=== PATIENT | female | born 1940 | race Caucasian/White ===

== ENCOUNTER 2018-08-27 19:00 | Inpatient (IN) ==
--- NOTE | 2018-08-27 19:39 | Emergency Department Note ---
Disposition Clinical Impression: Post-op pain, Acute kidney injury, Elevated troponin Disposition: Still a Patient Condition: Fair Referrals: Maddi Pizano CLOCK MAKER [Primary Care Provider] - Forms: ED Satisfaction Letter Time of Disposition: 22:37 General Adult HPI - General Stated complaint: chest pain Time Seen by Provider: 08/27/18 19:12 Source: patient, family Limitations: no limitations Nursing Notes Reviewed: Yes Vital Signs Reviewed: Yes - History of Present Illness HPI Narrative: 77-year-old female presents from home with daughter bedside for evaluation of substernal and subxiphoid pain. Described as an achy dull sensation. Worse with swallowing anything including her oral secretions. Also worse with coughing or deep inspiration. Nonradiating. She has no associated nausea, vomiting, or dyspnea. She called her surgeon, Dr. Morgan, who advised that she present to the emergency department for evaluation. PMH: Hypothyroid, hypertension, hyperlipidemia, chronic kidney disease stage III, peripheral artery disease, GERD Abdominal surgical history: Appendectomy, cholecystectomy, hysterectomy. Everardo fundoplication for large hiatal hernia. ROS: Pos: substernal/subxyphoid pain with swallowing and diaphragmatic movement Neg: fever, chills, nausea, vomiting, chest pain Pain Scale: 5 - Related Data Home Medications Medication Instructions Recorded Confirmed Cyanocobalamin (Vitamin B-12) 1,000 mcg SL DAILY 08/22/15 08/25/18 [Vitamin B-12] Levothyroxine [Synthroid] 100 mcg PO QAM 08/22/15 08/25/18 Metoprolol XL (24 HR) Succ [Toprol 25 mg PO QAM 08/22/15 08/25/18 Xl] Pantoprazole Sodium [Protonix] 40 mg PO QAM 08/22/15 08/25/18 Potassium 198 mg PO QAM 08/22/15 08/25/18 Pravastatin Sodium [Pravachol] 80 mg PO QPM 08/22/15 08/25/18 Zolpidem [Ambien] 5 mg PO HS PRN 08/22/15 08/25/18 Estradiol [Estrace] 1 appl VG 2XW 11/16/17 08/25/18 Ranitidine HCl [Zantac] 300 mg PO HS PRN 11/16/17 08/25/18 Hydrocortisone 2.5% CREAM [Cortaid] 1 appl TP TID PRN 08/25/18 08/25/18 Lisinopril-HCTZ 20-12.5 [Prinzide 1 tab PO QAM 08/25/18 08/25/18 20-12.5] Ubidecarenone/Vit E Acetate [Co 100 mg PO QPM 08/25/18 08/25/18 Q-10 100 mg Softgel] Vitamins A and D [Vitamin A and D] 1 cap PO DAILY 08/25/18 08/25/18 Previous Rx's Medication Instructions Recorded Acetaminophen [Tylenol] 1,000 mg PO Q4H PRN #90 tablet 08/26/18 Docusate Sodium [Colace] 100 mg PO BID PRN #60 capsule 08/26/18 Ondansetron ODT [Zofran ODT] 4 mg SL Q4HR PRN #30 tab.rapdis 08/26/18 OxyCODONE Immed Rel [Roxicodone 5 5 mg PO Q4HR PRN 7 Days #28 tablet 08/26/18 MG] Polyethylene Glycol 3350 [MiraLAX 1 scoop PO DAILY 30 Days #510 gm 08/26/18 Powder Bulk 17.9 Oz] Allergies Allergy/AdvReac Type Severity Reaction Status Date / Time buprenorphine [From Butrans] Allergy Swelling Verified 08/25/18 12:51 of Lip/Tongue/Throat KELLY Inhibitors AdvReac Cough Verified 08/25/18 12:51 duloxetine [From Cymbalta] AdvReac Agitated Verified 08/25/18 12:51 gabapentin AdvReac See Verified 08/25/18 12:51 Comments hydrocodone AdvReac Vomiting Verified 08/25/18 12:51 NSAIDS (Non-Steroidal AdvReac See Verified 08/25/18 12:51 Anti-Inflamma Comments Tizanidine AdvReac Dizziness Verified 08/25/18 12:51 All systems ED: reviewed and negative except as stated. Review of Systems: As Per HPI Past Medical History - Past Medical History Medical history: Reports: coronary artery disease, GERD, hyperlipidemia, hypertension, renal disease, thyroid disease Surgical history: Reports: appendectomy, cholecystectomy, colectomy, hysterectomy, knee replacement Psychiatric history: Reports: no psych history MEAT STOCKER history: Reports: no MEAT STOCKER history - Social History Smoking Status: Never smoker Smokeless Tobacco Status: No Alcohol use: Reports: none Drug use: Reports: none Physical Exam Vital Signs Reviewed General: Patient is alert, oriented, and in no acute distress. Head: atraumatic, normocephalic Eye: normal appearance, PERRL, EOMI, no scleral icterus, no conjunctival injection ENT: mucous membranes moist, normal external ear exam Neck: normal inspection, trachea midline, full ROM Chest: normal inspection, symmetric chest rise Respiratory: Good respiratory effort. Bilateral breath sounds are clear without wheezing, crackles, or rhonchi. Cardiovascular: Regular rate and rhythm. No clicks, rubs, gallops, or murmors. Normal heart sounds. Abdomen: Bowel sounds present normoactive. Abdomen is soft, nondistended. Mild epigastric tenderness to gentle palpation. No guarding or rebound. No organomegaly noted. Postoperative stab wounds are clean, dry, closed with adhesive glue intact. Musculoskeletal: Spontaneously moving all extremities. Skin: warm, dry, intact. Neuro: GCS 15. No focal neurologic deficits observed. Psych: Patient's affect is appropriate for situation. - General Limitations: no limitations General appearance: alert, in no apparent distress Course Course Narrative: EKG dated 08/27/2018 and 19:12 interpreted as sinus rhythm with rate of 64. VA 206; first-degree AV block. QRS 84, QTC 49. Will axis. Nonspecific ST-T changes. T-wave inversion isolated to be one. Compared to previous EKG dated 11/05/2017 showing no acute ischemic changes; T-wave inversion is not new. Discussed the patient with Dr. Gallagher. She agrees to see the patient on consultation. Surgical consult placed. Given the patient's acute kidney injury and elevation troponin she requests admission to medical service with her on consultation. Her current plan is for esophagram in the morning. The patient is pending admission by the hospitalist. Patient has been signed- out to Dr. Betts with final discussion and admission to the hospitalist pending. Vital Signs Temperature 98 F 08/27/18 19:24 Pulse Rate 64 08/27/18 19:24 Respiratory Rate 16 08/27/18 19:24 Blood Pressure 169/63 08/27/18 19:24 O2 Sat by Pulse Oximetry 95 08/27/18 19:24 Temperature 98 F 08/27/18 19:24 Pulse Rate 64 08/27/18 19:24 Respiratory Rate 16 08/27/18 19:24 Blood Pressure 169/63 08/27/18 19:24 O2 Sat by Pulse Oximetry 95 08/27/18 19:24 Oxygen Delivery Oxygen Delivery Room Air Medical Decision Making - Lab Data Result diagrams: 08/27/18 19:35 08/27/18 19:35 Lab Results 08/27/18 08/27/18 Range/Units 19:35 19:35 WBC 12.7 H (4.3-11.1) K/mcL RBC 3.74 L (3.82-4.97) M/mcL Hgb 11.7 (11.5-15.4) g/dL Hct 37.2 (35.3-44.9) % MCV 99.5 (83.0-100.0) fL MCH 31.3 (28.0-33.3) pg MCHC 31.5 L (31.6-35.5) g/dL RDW 13.1 (11.5-14.5) % Plt Count 220 (140-400) K/mcL MPV 9.6 (9.4-12.4) fL Immature Gran % 0.3 (0-4) % Seg Neutrophils % 80.5 % Lymphocytes % 9.1 % Monocytes % 9.5 % Eosinophils % 0.4 % Basophils % 0.2 % Neutrophils # 10.2 H (1.6-8.9) K/mcL Lymphocytes # 1.2 (0.6-4.6) K/mcL Monocytes # 1.2 (0.0-1.3) K/mcL Eosinophils # 0.1 (0.0-0.6) K/mcL Basophils # 0.0 (0.0-0.2) K/mcL Sodium 139 (136-145) mEq/L Potassium 4.1 (3.5-5.1) mEq/L Chloride 106 (98-107) mEq/L Carbon Dioxide 26 (23-29) mEq/L BUN 29 H (8-23) mg/dL Creatinine 1.32 H (0.60-1.20) mg/dL Est GFR ( Amer) 47 L (> 60) Est GFR (Non-Af Amer) 39 L (> 60) BUN/Creatinine Ratio 22 (6-26) Glucose 130 H (70-105) mg/dL Calculated Osmolality 296 (280-300) Calcium 9.3 (8.6-10.3) mg/dL Troponin I 0.04 H* (< 0.04) ng/mL
[2018-08-27 20:02] LABS: Basophils % 0.2 %; Eosinophils # 0.1 K/mcL (0.0-0.6); Eosinophils % 0.4 %; Hematocrit 37.2 % (35.3-44.9); Hemoglobin 11.7 g/dL (11.5-15.4); Immature Granulocytes % 0.3 % (0-4); Lymphocytes # 1.2 K/mcL (0.6-4.6); Lymphocytes % 9.1 %; Mean Corpuscular HGB Conc 31.5 g/dL (31.6-35.5); Mean Corpuscular Hemoglobin 31.3 pg (28.0-33.3); Mean Corpuscular Volume 99.5 fL (83.0-100.0); Mean Platelet Volume 9.6 fL (9.4-12.4); Monocytes # 1.2 K/mcL (0.0-1.3); Monocytes % 9.5 %; Neutrophils # 10.2 K/mcL (1.6-8.9); Platelet Count 220 K/mcL (140-400); Red Blood Count 3.74 M/mcL (3.82-4.97); Red Cell Distribution Width 13.1 % (11.5-14.5); Segmented Neutrophils % 80.5 %; White Blood Count 12.7 K/mcL (4.3-11.1)
--- NOTE | 2018-08-27 20:03 | Emergency Department Note ---
Disposition Clinical Impression: Post-op pain, Acute kidney injury, Elevated troponin Disposition: Admitted As Inpatient Condition: Fair Referrals: Maddi Pizano, AVIATION SAFETY TECHNICIAN [Primary Care Provider] - Forms: ED Satisfaction Letter Time of Disposition: 22:47 General Adult HPI - General Chief complaint: ED Chest Pain Stated complaint: chest pain Time Seen by Provider: 08/27/18 19:12 Source: patient, family Limitations: no limitations - History of Present Illness Pain Scale: 5 - Related Data Home Medications Medication Instructions Recorded Confirmed Cyanocobalamin (Vitamin B-12) 1,000 mcg SL DAILY 08/22/15 08/25/18 [Vitamin B-12] Levothyroxine [Synthroid] 100 mcg PO QAM 08/22/15 08/25/18 Metoprolol XL (24 HR) Succ [Toprol 25 mg PO QAM 08/22/15 08/25/18 Xl] Pantoprazole Sodium [Protonix] 40 mg PO QAM 08/22/15 08/25/18 Potassium 198 mg PO QAM 08/22/15 08/25/18 Pravastatin Sodium [Pravachol] 80 mg PO QPM 08/22/15 08/25/18 Zolpidem [Ambien] 5 mg PO HS PRN 08/22/15 08/25/18 Estradiol [Estrace] 1 appl VG 2XW 11/16/17 08/25/18 Ranitidine HCl [Zantac] 300 mg PO HS PRN 11/16/17 08/25/18 Hydrocortisone 2.5% CREAM [Cortaid] 1 appl TP TID PRN 08/25/18 08/25/18 Lisinopril-HCTZ 20-12.5 [Prinzide 1 tab PO QAM 08/25/18 08/25/18 20-12.5] Ubidecarenone/Vit E Acetate [Co 100 mg PO QPM 08/25/18 08/25/18 Q-10 100 mg Softgel] Vitamins A and D [Vitamin A and D] 1 cap PO DAILY 08/25/18 08/25/18 Previous Rx's Medication Instructions Recorded Acetaminophen [Tylenol] 1,000 mg PO Q4H PRN #90 tablet 08/26/18 Docusate Sodium [Colace] 100 mg PO BID PRN #60 capsule 08/26/18 Ondansetron ODT [Zofran ODT] 4 mg SL Q4HR PRN #30 tab.rapdis 08/26/18 OxyCODONE Immed Rel [Roxicodone 5 5 mg PO Q4HR PRN 7 Days #28 tablet 08/26/18 MG] Polyethylene Glycol 3350 [MiraLAX 1 scoop PO DAILY 30 Days #510 gm 08/26/18 Powder Bulk 17.9 Oz] Allergies Allergy/AdvReac Type Severity Reaction Status Date / Time buprenorphine [From Butrans] Allergy Swelling Verified 08/25/18 12:51 of Lip/Tongue/Throat KELLY Inhibitors AdvReac Cough Verified 08/25/18 12:51 duloxetine [From Cymbalta] AdvReac Agitated Verified 08/25/18 12:51 gabapentin AdvReac See Verified 08/25/18 12:51 Comments hydrocodone AdvReac Vomiting Verified 08/25/18 12:51 NSAIDS (Non-Steroidal AdvReac See Verified 08/25/18 12:51 Anti-Inflamma Comments Tizanidine AdvReac Dizziness Verified 08/25/18 12:51 Past Medical History - Past Medical History Medical history: Reports: coronary artery disease, GERD, hyperlipidemia, hypertension, renal disease, thyroid disease Surgical history: Reports: appendectomy, cholecystectomy, colectomy, hysterectomy, knee replacement Psychiatric history: Reports: no psych history SOLDERER TORCH history: Reports: no SOLDERER TORCH history - Social History Smoking Status: Never smoker Smokeless Tobacco Status: No Alcohol use: Reports: none Drug use: Reports: none Physical Exam - General Limitations: no limitations General appearance: alert, in no apparent distress Course Vital Signs Temperature 98 F 08/27/18 19:24 Pulse Rate 64 08/27/18 19:24 Respiratory Rate 16 08/27/18 19:24 Blood Pressure 169/63 08/27/18 19:24 O2 Sat by Pulse Oximetry 95 08/27/18 19:24 Temperature 98 F 08/27/18 19:24 Pulse Rate 64 08/27/18 19:24 Respiratory Rate 16 08/27/18 19:24 Blood Pressure 169/63 08/27/18 19:24 O2 Sat by Pulse Oximetry 95 08/27/18 19:24 Oxygen Delivery Oxygen Delivery Room Air Medical Decision Making - Lab Data Result diagrams: 08/27/18 19:35 08/27/18 19:35 Lab Results 08/27/18 08/27/18 Range/Units 19:35 19:35 WBC 12.7 H (4.3-11.1) K/mcL RBC 3.74 L (3.82-4.97) M/mcL Hgb 11.7 (11.5-15.4) g/dL Hct 37.2 (35.3-44.9) % MCV 99.5 (83.0-100.0) fL MCH 31.3 (28.0-33.3) pg MCHC 31.5 L (31.6-35.5) g/dL RDW 13.1 (11.5-14.5) % Plt Count 220 (140-400) K/mcL MPV 9.6 (9.4-12.4) fL Immature Gran % 0.3 (0-4) % Seg Neutrophils % 80.5 % Lymphocytes % 9.1 % Monocytes % 9.5 % Eosinophils % 0.4 % Basophils % 0.2 % Neutrophils # 10.2 H (1.6-8.9) K/mcL Lymphocytes # 1.2 (0.6-4.6) K/mcL Monocytes # 1.2 (0.0-1.3) K/mcL Eosinophils # 0.1 (0.0-0.6) K/mcL Basophils # 0.0 (0.0-0.2) K/mcL Sodium 139 (136-145) mEq/L Potassium 4.1 (3.5-5.1) mEq/L Chloride 106 (98-107) mEq/L Carbon Dioxide 26 (23-29) mEq/L BUN 29 H (8-23) mg/dL Creatinine 1.32 H (0.60-1.20) mg/dL Est GFR ( Amer) 47 L (> 60) Est GFR (Non-Af Amer) 39 L (> 60) BUN/Creatinine Ratio 22 (6-26) Glucose 130 H (70-105) mg/dL Calculated Osmolality 296 (280-300) Calcium 9.3 (8.6-10.3) mg/dL Troponin I 0.04 H* (< 0.04) ng/mL Attestation Statement - Attestation Attestation: I examined this patient and my medical decision-making was reviewed with the Resident Physician. I agree with the documented findings, disposition and treatment plan as described except to the extent set forth below. Patient resisted ED with chief complaint of chest pain and trouble swallowing. Patient is 2 days status post robotic surgery on her esophagus. Starting around noon today while she was sitting on the porch she experience pain in the center of her chest and radiated down into her abdomen. Called her surgeon who recommended her to come to the ED. States she cannot swallow water today. On exam she is in no distress. No reproduce with tenderness. Her incisions are intact without erythema or drainage. Plan. Cardiac workup. We will discuss with surgery. EKG was reviewed with the resident with no acute ischemic changes. Patient has a slight elevation in her troponin. She is given an aspirin. The case is then discussed with surgery who will see her in consult. She will be admitted to medicine. Chest X-Ray 08/27/18 19:29 IMPRESSION: Small bilateral pleural effusions and bibasilar atelectasis or pneumonitis. Soft tissue emphysema and bilateral supraclavicular regions. Correlate with the history of recent surgery. D/ / Jared Tavera MD / Jared Tavera MD Interpreting Provider: Jared Tavera MD
[2018-08-27 20:20] LABS: Calcium 9.3 mg/dL (8.6-10.3); Potassium 4.1 mEq/L (3.5-5.1); Troponin I 0.04 ng/mL (< 0.04)
[2018-08-27] MEDS ORDERED: Aspirin 325 MG TABLET PO ONE (21:16)
[2018-08-27] MEDS ORDERED: 0.9 % Sodium Chloride 1,000 ML IVC SCH ×2 (21:30→22:36)
[2018-08-27] MEDS ORDERED: *HR* OxyCODONE Immed Rel 5 MG TABLET PO STA (22:18)
--- NOTE | 2018-08-28 00:40 | Emergency Department Note ---
Disposition Clinical Impression: Post-op pain, Acute kidney injury, Elevated troponin Disposition: Admitted As Inpatient Condition: Fair Time of Disposition: 00:57 General Adult HPI - General Chief complaint: ED Chest Pain Stated complaint: chest pain Time Seen by Provider: 08/27/18 19:12 Source: patient, family Limitations: no limitations - History of Present Illness Pain Scale: 5 - Related Data Home Medications Medication Instructions Recorded Confirmed Cyanocobalamin (Vitamin B-12) 1,000 mcg SL DAILY 08/22/15 08/27/18 [Vitamin B-12] Levothyroxine [Synthroid] 100 mcg PO QAM 08/22/15 08/27/18 Metoprolol XL (24 HR) Succ [Toprol 25 mg PO QAM 08/22/15 08/27/18 Xl] Pantoprazole Sodium [Protonix] 40 mg PO QAM 08/22/15 08/27/18 Potassium 198 mg PO QAM 08/22/15 08/27/18 Pravastatin Sodium [Pravachol] 80 mg PO QPM 08/22/15 08/27/18 Zolpidem [Ambien] 5 mg PO HS PRN 08/22/15 08/27/18 Estradiol [Estrace] 1 appl VG 2XW 11/16/17 08/27/18 Ranitidine HCl [Zantac] 300 mg PO HS PRN 11/16/17 08/27/18 Hydrocortisone 2.5% CREAM [Cortaid] 1 appl TP TID PRN 08/25/18 08/27/18 Lisinopril-HCTZ 20-12.5 [Prinzide 1 tab PO QAM 08/25/18 08/27/18 20-12.5] Ubidecarenone/Vit E Acetate [Co 100 mg PO QPM 08/25/18 08/27/18 Q-10 100 mg Softgel] Vitamins A and D [Vitamin A and D] 1 cap PO DAILY 08/25/18 08/27/18 Previous Rx's Medication Instructions Recorded Docusate Sodium [Colace] 100 mg PO BID PRN #60 capsule 08/26/18 Ondansetron ODT [Zofran ODT] 4 mg SL Q4HR PRN #30 tab.rapdis 08/26/18 OxyCODONE Immed Rel [Roxicodone 5 5 mg PO Q4HR PRN 7 Days #28 tablet 08/26/18 MG] Polyethylene Glycol 3350 [MiraLAX 1 scoop PO DAILY 30 Days #510 gm 08/26/18 Powder Bulk 17.9 Oz] Allergies Allergy/AdvReac Type Severity Reaction Status Date / Time buprenorphine [From Butrans] Allergy Swelling Verified 08/25/18 12:51 of Lip/Tongue/Throat KELLY Inhibitors AdvReac Cough Verified 08/25/18 12:51 duloxetine [From Cymbalta] AdvReac Agitated Verified 08/25/18 12:51 gabapentin AdvReac See Verified 08/25/18 12:51 Comments hydrocodone AdvReac Vomiting Verified 08/25/18 12:51 NSAIDS (Non-Steroidal AdvReac See Verified 08/25/18 12:51 Anti-Inflamma Comments Tizanidine AdvReac Dizziness Verified 08/25/18 12:51 Past Medical History - Past Medical History Medical history: Reports: coronary artery disease, GERD, hyperlipidemia, hypertension, renal disease, thyroid disease Surgical history: Reports: appendectomy, cholecystectomy, colectomy, hysterectomy, knee replacement Psychiatric history: Reports: no psych history PAYROLL EXAMINER history: Reports: no PAYROLL EXAMINER history - Social History Smoking Status: Never smoker Smokeless Tobacco Status: No Alcohol use: Reports: none Drug use: Reports: none Physical Exam - General Limitations: no limitations General appearance: alert, in no apparent distress Course Vital Signs Temperature 98 F 08/27/18 19:24 Pulse Rate 64 08/27/18 19:24 Respiratory Rate 16 08/27/18 19:24 Blood Pressure 169/63 08/27/18 19:24 O2 Sat by Pulse Oximetry 95 08/27/18 19:24 Temperature 98 F 08/27/18 19:24 Pulse Rate 69 08/27/18 23:48 Respiratory Rate 16 08/27/18 23:48 Blood Pressure 153/65 08/27/18 23:48 O2 Sat by Pulse Oximetry 94 08/27/18 23:48 Oxygen Delivery Oxygen Delivery Room Air Medical Decision Making - Lab Data Result diagrams: 08/27/18 19:35 08/27/18 19:35 Lab Results 08/27/18 08/27/18 Range/Units 19:35 19:35 WBC 12.7 H (4.3-11.1) K/mcL RBC 3.74 L (3.82-4.97) M/mcL Hgb 11.7 (11.5-15.4) g/dL Hct 37.2 (35.3-44.9) % MCV 99.5 (83.0-100.0) fL MCH 31.3 (28.0-33.3) pg MCHC 31.5 L (31.6-35.5) g/dL RDW 13.1 (11.5-14.5) % Plt Count 220 (140-400) K/mcL MPV 9.6 (9.4-12.4) fL Immature Gran % 0.3 (0-4) % Seg Neutrophils % 80.5 % Lymphocytes % 9.1 % Monocytes % 9.5 % Eosinophils % 0.4 % Basophils % 0.2 % Neutrophils # 10.2 H (1.6-8.9) K/mcL Lymphocytes # 1.2 (0.6-4.6) K/mcL Monocytes # 1.2 (0.0-1.3) K/mcL Eosinophils # 0.1 (0.0-0.6) K/mcL Basophils # 0.0 (0.0-0.2) K/mcL Sodium 139 (136-145) mEq/L Potassium 4.1 (3.5-5.1) mEq/L Chloride 106 (98-107) mEq/L Carbon Dioxide 26 (23-29) mEq/L BUN 29 H (8-23) mg/dL Creatinine 1.32 H (0.60-1.20) mg/dL Est GFR ( Amer) 47 L (> 60) Est GFR (Non-Af Amer) 39 L (> 60) BUN/Creatinine Ratio 22 (6-26) Glucose 130 H (70-105) mg/dL Calculated Osmolality 296 (280-300) Calcium 9.3 (8.6-10.3) mg/dL Troponin I 0.04 H* (< 0.04) ng/mL Attestation Statement - Attestation Attestation: Care of patient assumed from Dr. Payne and Dr. Branham at 23:00 pending admission. I spoke with Dr. Gonzales, hospitalist, who recommended a CT chest due to the subcutaneous supraclavicular air identified on chest x-ray. This test was ordered and is pending. Care will be endorsed to Dr. Escalante at 01:00
[2018-08-28] MEDS ORDERED: Naloxone 0.4 MG/ML INJ IVP PRN (03:19)
[2018-08-28] MEDS ORDERED: Ondansetron 4 MG/2 ML VIAL IVP PRN (03:19)
--- NOTE | 2018-08-28 04:50 | Internal Med History&Physical ---
Date of Encounter: 08/28/18 Time of Encounter: 02:30 Internal Medicine - H&P: HPI Chief complaint: painful swallowing; chest pain Admitted From: Emergency Dept Plans for Post Hospital Care: Home History of present illness: Ms. Ackerman is a 77 year old female who presents tonight 2 days postop from robotic-assisted Everardo fundoplication and hernia repair. She has had almost no oral intake since discharge. She has had significant difficulty and painful swallowing, chest pain, and nausea. She therefore came to ER for evaluation and consult was placed to surgery for further workup. She was noted to have an elevated troponin of 0.04. She was therefore admitted to hospitalist service for concerns of chest pain. I requested the patient have a CT of the chest to rule out mediastinitis and/or esophageal perforation. CT suggests postoperative changes and some extraluminal gas which can be secondary to surgery. However, perforated viscus could not be excluded. Dr. Leon was consulted from the ER. Upon my assessment of the patient, she and her daughter confirmed the above history. She is resting in bed comfortably now. She has minimal pain now. I do not appreciate any subcutaneous emphysema. She describes her chest pain as sharp, midsternal, and associated with swallowing. She denies any fevers, chills, or night sweats. Past Med Surg Social Fam HX - Past Medical History Attestation: Yes The following information was validated with the patient. Source: patient, old records reviewed, obtained from family Medical history: coronary artery disease, GERD, hyperlipidemia, hypertension, renal disease, thyroid disease Additional medical history: atypical chest pain, insomnia, hiatal hernia, stomach ulcer, esophageal stricture Psychiatric history: no psych history - Past Surgical History Surgical History: appendectomy, cholecystectomy, colectomy, hysterectomy, knee replacement Additional surgical history: Spine Stimulator H/O. bladder suspension. tonsil lectomy. hiatal hernia repair 08/25/18 - Social History Smoking Status: Never smoker Smokeless Tobacco Status: No Alcohol use: none Drug use: none Current living situation: Home, With Family Activity Level: Independent ambulation Recent Out of Country Travel Within the Last 8 Weeks: No - Family History Father Living Status: Hx Family Respiratory Disorders: Yes (lung disease from WWI biological weapon) Mother Hx Family Cardiac Disorders: Yes (CHF) Internal Medicine - H&P: Meds Cyanocobalamin (Vitamin B-12) [Vitamin B-12] 1,000 mcg SL DAILY 08/22/15 [History] Levothyroxine [Synthroid] 100 mcg PO QAM 08/22/15 [History] Metoprolol XL (24 HR) Succ [Toprol Xl] 25 mg PO QAM 08/22/15 [History] Pantoprazole Sodium [Protonix] 40 mg PO QAM 08/22/15 [History] Potassium 198 mg PO QAM 08/22/15 [History] Pravastatin Sodium [Pravachol] 80 mg PO QPM 08/22/15 [History] Zolpidem [Ambien] 5 mg PO HS PRN 08/22/15 [History] Estradiol [Estrace] 1 appl VG 2XW 11/16/17 [History] Ranitidine HCl [Zantac] 300 mg PO HS PRN 11/16/17 [History] Hydrocortisone 2.5% CREAM [Cortaid] 1 appl TP TID PRN 08/25/18 [History] Lisinopril-HCTZ 20-12.5 [Prinzide 20-12.5] 1 tab PO QAM 08/25/18 [History] Ubidecarenone/Vit E Acetate [Co Q-10 100 mg Softgel] 100 mg PO QPM 08/25/18 [History] Vitamins A and D [Vitamin A and D] 1 cap PO DAILY 08/25/18 [History] Docusate Sodium [Colace] 100 mg PO BID PRN #60 capsule 08/26/18 [Rx] Ondansetron ODT [Zofran ODT] 4 mg SL Q4HR PRN #30 tab.rapdis 08/26/18 [Rx] OxyCODONE Immed Rel [Roxicodone 5 MG] 5 mg PO Q4HR PRN 7 Days #28 tablet 08/26/18 [Rx] Polyethylene Glycol 3350 [MiraLAX Powder Bulk 17.9 Oz] 1 scoop PO DAILY 30 Days #510 gm 08/26/18 [Rx] Allergy/AdvReac Type Severity Reaction Status Date / Time buprenorphine [From Butrans] Allergy Swelling Verified 08/25/18 12:51 of Lip/Tongue/Throat KELLY Inhibitors AdvReac Cough Verified 08/25/18 12:51 duloxetine [From Cymbalta] AdvReac Agitated Verified 08/25/18 12:51 gabapentin AdvReac See Verified 08/25/18 12:51 Comments hydrocodone AdvReac Vomiting Verified 08/25/18 12:51 NSAIDS (Non-Steroidal AdvReac See Verified 08/25/18 12:51 Anti-Inflamma Comments Tizanidine AdvReac Dizziness Verified 08/25/18 12:51 - Constitutional Constitutional: no chills, no fever(s), no night sweats - EENT Eyes: no blurry vision, no change in vision Ears: no ear pain, no tinnitus Nose, mouth and throat: no nasal congestion, no sinus pressure, no sore throat - Cardiovascular Cardiovascular ROS IM: chest pain, no dyspnea, no dyspnea on exertion, no orthopnea, no paroxysmal nocturnal dyspnea - Respiratory Respiratory: no cough, no dyspnea, no hemoptysis, no chest congestion, no excessive phlegm production, no change in phlegm color - Gastrointestinal Gastrointestinal: abdominal pain, odynophagia, no diarrhea, no heartburn, no hematemesis, no hematochezia, no melena, no vomiting - Genitourinary Genitourinary: no dysuria, no flank pain, no hematuria - Musculoskeletal Musculoskeletal ROS IM: no arthralgias, no back pain - Integumentary Integumentary IM: no rash, no jaundice - Neurological Neurological ROS: no disequilibrium, no dizziness, no focal weakness, no frequent falls, no headache(s) - Psychiatric Psychiatric: no anxiety, no depression - Endocrine Endocrine IM: no cold intolerance, no heat intolerance, no polydipsia, no polyphagia, no polyuria - Allergic/Immunologic Allergic/Immunologic: GI upset with certain foods, no wheezing - Constitutional Vitals: Temp Pulse Resp BP Pulse Ox 98.3 F 66 15 182/74 90 08/28/18 02:03 08/28/18 02:03 08/28/18 02:03 08/28/18 02:03 08/28/18 02:03 General appearance: Present: cooperative, mild distress, A&O X 3, pleasant, answers questions appropriately Exam: complaining of mild midsternal sharp pain - Head Head exam: Present: atraumatic, normal inspection - Eye Eye exam: Present: EOMI, PERRL. Absent: scleral icterus Pupils: Present: normal accommodation - ENT ENT exam: Present: mucous membranes dry, normal exam, normal oropharynx - Neck Neck exam general surgery: Present: full ROM, supple, trachea midline. Absent: tenderness, nuchal rigidity, thyromegaly - Respiratory Respiratory exam: Present: CTAB. Absent: chest wall tenderness, rales, rhonchi, wheezes - Cardiovascular Cardiovascular exam: Present: RRR, +S1, +S2. Absent: diastolic murmur, systolic murmur - GI/Abdominal GI/Abdominal exam: Present: normal bowel sounds, tenderness (epigastric area). Absent: guarding, hepatomegaly, mass, rebound, splenomegaly - Extremities Exam Extremities exam: Present: full ROM, normal capillary refill, warm, radial pulses palpable and symmetrical. Absent: calf tenderness, pedal edema, tenderness - Back Exam Back exam: Absent: CVA tenderness (L), CVA tenderness (R) - Neurological Exam Neurological exam: Present: alert, CN II-XII intact, oriented X3, strengths equal and symetr throughout - Psychiatric Psychiatric exam: Present: normal affect, normal mood - Skin Skin exam: Present: dry, intact, warm Internal Med - H&P Results - Labs CBC & Chem 7: 08/27/18 19:35 08/27/18 19:35 Labs: Short CBC 08/27/18 Range/Units 19:35 WBC 12.7 H (4.3-11.1) K/mcL Hgb 11.7 (11.5-15.4) g/dL Hct 37.2 (35.3-44.9) % Plt Count 220 (140-400) K/mcL Neutrophils # 10.2 H (1.6-8.9) K/mcL BMP 08/27/18 19:35 Sodium 139 Potassium 4.1 Chloride 106 Carbon Dioxide 26 BUN 29 H Creatinine 1.32 H Glucose 130 H Calcium 9.3 Cardiac Enzymes 08/27/18 Range/Units 19:35 Troponin I 0.04 H* (< 0.04) ng/mL - EKG Data -: EKG Interpreted by Myself - EKG Data Prior EKG available for review: no EKG comments: 08/28/18 04:[address]-T changes NSR - Impressions ITS Impressions Chest X-Ray 08/27/18 19:29 IMPRESSION: Small bilateral pleural effusions and bibasilar atelectasis or pneumonitis. Soft tissue emphysema and bilateral supraclavicular regions. Correlate with the history of recent surgery. D/ / Jared Tavera MD / Jared Tavera MD Interpreting Provider: Jared Tavera MD Chest CT 08/28/18 23:27 IMPRESSION: Postsurgical changes gastric fundoplication. There is mediastinal gas identified including gas adjacent to the distal esophagus. There is fluid surrounding the distal esophagus and to a lesser extent the stomach which could be postsurgical. Upper abdominal extraluminal gas, and lower chest and upper chest wall gas are also identified. Extraluminal gas could be related to recent surgery. Perforated viscus is not excluded. Small moderate bilateral pleural effusions with bibasilar airspace disease, atelectasis and/or pneumonia. Right upper lobe centrilobular nodules in a branching configuration, likely infectious pneumonitis. D/ / Michell Romero Cha, MD / Michell Romero Cha, MD Interpreting Provider: Michell Romero Cha, MD - Diagnostic Studies Chest x-ray Status: image reviewed by me (small bilateral pleural effusion) - Assessment and Plan (1) Odynophagia Current Visit: Yes Status: Acute Assessment and plan: 1. WIll keep NPO. 2. Consult surgery. 3. Order Esophagram to rule out esophageal perforation. 4. Culture blood and start antibiotics to cover GI юлия. 5. IV PPI. (2) Acute kidney injury Current Visit: Yes Status: Acute Assessment and plan: 1. IV fluids. 2. Monitor renal function, I/O's. 3. May need nephrology consultation if function does not return to baseline. (3) Elevated troponin Current Visit: Yes Status: Acute Assessment and plan: 1. Will trend troponins and monitor on telemetry. 2. Order ECHO. 3. Consult cardiology if significant rise in troponins and/or patient develops anginal type pain. (4) DVT prophylaxis Current Visit: Yes Status: Acute Assessment and plan: 1. Heparin SQ.
[2018-08-28 05:02] LABS: Basophils # 0.1 K/mcL (0.0-0.2); Basophils % 0.4 %; Eosinophils # 0.1 K/mcL (0.0-0.6); Hematocrit 35.6 % (35.3-44.9); Hemoglobin 11.4 g/dL (11.5-15.4); Immature Granulocytes % 0.4 % (0-4); Lymphocytes # 1.2 K/mcL (0.6-4.6); Lymphocytes % 9.3 %; Mean Corpuscular Volume 96.7 fL (83.0-100.0); Mean Platelet Volume 9.5 fL (9.4-12.4); Monocytes # 1.3 K/mcL (0.0-1.3); Monocytes % 10.3 %; Neutrophils # 10.1 K/mcL (1.6-8.9); Platelet Count 192 K/mcL (140-400); Red Blood Count 3.68 M/mcL (3.82-4.97); Segmented Neutrophils % 78.6 %; White Blood Count 12.9 K/mcL (4.3-11.1)
[2018-08-28 05:17] LABS: Alanine Aminotransferase 212 Units/L (7-52); Albumin 3.4 g/dL (3.5-5.7); Albumin/Globulin Ratio 1.4 (1.1-2.2); Alkaline Phosphatase 159 Units/L (34-104); Aspartate Amino Transferase 208 Units/L (13-39); BUN/Creatinine Ratio 25 (6-26); Bilirubin,Total 3.5 mg/dL (0.3-1.0); Blood Urea Nitrogen 26 mg/dL (8-23); Calcium 9.2 mg/dL (8.6-10.3); Carbon Dioxide 24 mEq/L (23-29); Chloride 105 mEq/L (98-107); Globulin 2.4 g/dL (2.4-3.5); Glucose 106 mg/dL (70-105); Osmolality,Calculated 291 (280-300); Potassium 3.7 mEq/L (3.5-5.1); Sodium 138 mEq/L (136-145); Total Protein 5.8 g/dL (6.4-8.9); eGFR For African Americans > 60 (> 60); eGFR For Non-African Americans 51 (> 60)
[2018-08-28 05:18] LABS: INR 1.1; Prothrombin Time 12.8 Seconds (9.4-12.1)
--- NOTE | 2018-08-28 06:36 | AcuteCare Surgery Consult Note ---
Date of Encounter: 08/28/18 Time of Encounter: 06:00 Assessment and Plan (1) Odynophagia Current Visit: Yes Status: Acute POD#3 Robotic paraesophageal HH repair and Everardo fundoplication. Suspect odynophagia is due to post-op edema. Maintain NPO except meds. Baclofen PO. Solumedrol IV. Repeat Esophagram in 1-2 days. (2) Acute kidney injury Current Visit: Yes Status: Acute IVF for hydration. (3) Elevated troponin Current Visit: Yes Status: Acute Trending down (4) CKD (chronic kidney disease), stage III Current Visit: No Status: Acute (5) HTN (hypertension) Current Visit: No Status: Acute Qualifiers: Hypertension type: essential hypertension Qualified Code(s): I10 - Essential (primary) hypertension History of Present Illness Consult date: 08/27/18 Reason for consult: other (odynophagia s/p Robo everardo and HH repair) Requesting physician: Jean Gonzales History of present illness: Pt presents to [facility] on advise from Dr. Markham who performed a robo everardo with HH repair a few days ago. Pt c/o chest pain and cannot swallow without pain. Very little goes down. Denies SOB. Denies abdominal pain. Denies fever. Past Med Surg Social Fam HX - Past Medical History Medical history: coronary artery disease, GERD, hyperlipidemia, hypertension, renal disease, thyroid disease Additional medical history: atypical chest pain, insomnia, hiatal hernia, stomach ulcer, esophageal stricture Psychiatric history: no psych history - Past Surgical History Surgical History: appendectomy, cholecystectomy, colectomy, hysterectomy, knee replacement Additional surgical history: Spine Stimulator H/O. bladder suspension. tons illectomy. hiatal hernia repair 08/25/18 - Social History Smoking Status: Never smoker Smokeless Tobacco Status: No Alcohol use: none Drug use: none - Family History Father Living Status: Hx Family Respiratory Disorders: Yes (lung disease from WWI biological weapon) Mother Hx Family Cardiac Disorders: Yes (CHF) Medications and Allergies Cyanocobalamin (Vitamin B-12) [Vitamin B-12] 1,000 mcg SL DAILY 08/22/15 [History] Levothyroxine [Synthroid] 100 mcg PO QAM 08/22/15 [History] Metoprolol XL (24 HR) Succ [Toprol Xl] 25 mg PO QAM 08/22/15 [History] Pantoprazole Sodium [Protonix] 40 mg PO QAM 08/22/15 [History] Potassium 198 mg PO QAM 08/22/15 [History] Pravastatin Sodium [Pravachol] 80 mg PO QPM 08/22/15 [History] Zolpidem [Ambien] 5 mg PO HS PRN 08/22/15 [History] Estradiol [Estrace] 1 appl VG 2XW 11/16/17 [History] Ranitidine HCl [Zantac] 300 mg PO HS PRN 11/16/17 [History] Hydrocortisone 2.5% CREAM [Cortaid] 1 appl TP TID PRN 08/25/18 [History] Lisinopril-HCTZ 20-12.5 [Prinzide 20-12.5] 1 tab PO QAM 08/25/18 [History] Ubidecarenone/Vit E Acetate [Co Q-10 100 mg Softgel] 100 mg PO QPM 08/25/18 [History] Vitamins A and D [Vitamin A and D] 1 cap PO DAILY 08/25/18 [History] Docusate Sodium [Colace] 100 mg PO BID PRN #60 capsule 08/26/18 [Rx] Ondansetron ODT [Zofran ODT] 4 mg SL Q4HR PRN #30 tab.rapdis 08/26/18 [Rx] OxyCODONE Immed Rel [Roxicodone 5 MG] 5 mg PO Q4HR PRN 7 Days #28 tablet 08/26/18 [Rx] Polyethylene Glycol 3350 [MiraLAX Powder Bulk 17.9 Oz] 1 scoop PO DAILY 30 Days #510 gm 08/26/18 [Rx] Allergy/AdvReac Type Severity Reaction Status Date / Time buprenorphine [From Butrans] Allergy Swelling Verified 08/25/18 12:51 of Lip/Tongue/Throat KELLY Inhibitors AdvReac Cough Verified 08/25/18 12:51 duloxetine [From Cymbalta] AdvReac Agitated Verified 08/25/18 12:51 gabapentin AdvReac See Verified 08/25/18 12:51 Comments hydrocodone AdvReac Vomiting Verified 08/25/18 12:51 NSAIDS (Non-Steroidal AdvReac See Verified 08/25/18 12:51 Anti-Inflamma Comments Tizanidine AdvReac Dizziness Verified 08/25/18 12:51 Review of Systems All systems PM: The remainder of the systems were reviewed and are negative - Constitutional anorexia, fatigue, weakness, no chills, no excessive sweating, no fever(s), no night sweats - EENT Nose, mouth and throat: dry mouth, dysphagia, sore throat, no nasal congestion, no nasal discharge, no sinus pain, no sinus pressure - Cardiovascular chest pain, chest pain at rest, no diaphoresis, no dyspnea, no edema - Respiratory no cough, no dyspnea, no wheezing - Gastrointestinal belching, no abdominal pain, no bloating, no constipation, no diarrhea, no heartburn, no nausea, no vomiting - Genitourinary Genitourinary: no dysuria, no flank pain, no urinary frequency - Musculoskeletal back pain, no joint swelling, no limited range of motion, no neck pain - Integumentary dry skin, no pruritus, no rash, no wounds, no jaundice - Neurological weakness, no confusion, no dizziness, no focal weakness, no headache(s) - Psychiatric no anxiety, no depression - Endocrine fatigue - Hematologic/Lymphatic no easy bleeding, no easy bruising General Surgery Exam Initial Vital Signs Temp Pulse Resp BP Pulse Ox 98 F 64 16 169/63 95 08/27/18 19:24 08/27/18 19:24 08/27/18 19:24 08/27/18 19:24 08/27/18 19:24 Exam Initial Vital Signs Temp Pulse Resp BP Pulse Ox 98 F 64 16 169/63 95 08/27/18 19:24 08/27/18 19:24 08/27/18 19:24 08/27/18 19:24 08/27/18 19:24 Results - Labs 08/28/18 04:47 08/28/18 04:47 Abnormal lab results WBC 12.9 K/mcL (4.3-11.1) H 08/28/18 04:47 RBC 3.68 M/mcL (3.82-4.97) L 08/28/18 04:47 Hgb 11.4 g/dL (11.5-15.4) L 08/28/18 04:47 MCHC 31.5 g/dL (31.6-35.5) L 08/27/18 19:35 Neutrophils # 10.1 K/mcL (1.6-8.9) H 08/28/18 04:47 PT 12.8 Seconds (9.4-12.1) H 08/28/18 04:47 BUN 26 mg/dL (8-23) H 08/28/18 04:47 Creatinine 1.32 mg/dL (0.60-1.20) H 08/27/18 19:35 Est GFR ( Amer) 47 (> 60) L 08/27/18 19:35 Est GFR (Non-Af Amer) 51 (> 60) L 08/28/18 04:47 Glucose 106 mg/dL (70-105) H 08/28/18 04:47 Total Bilirubin 3.5 mg/dL (0.3-1.0) H 08/28/18 04:47 AST 208 Units/L (13-39) H 08/28/18 04:47 ALT 212 Units/L (7-52) H 08/28/18 04:47 Alkaline Phosphatase 159 Units/L (34-104) H 08/28/18 04:47 Troponin I 0.32 ng/mL (< 0.04) H* 08/28/18 04:47 Serum Total Protein 5.8 g/dL (6.4-8.9) L 08/28/18 04:47 Albumin 3.4 g/dL (3.5-5.7) L 08/28/18 04:47 Diabetes panel 08/27/18 08/28/18 Range/Units 19:35 04:47 Sodium 139 138 (136-145) mEq/L Potassium 4.1 3.7 (3.5-5.1) mEq/L Chloride 106 105 (98-107) mEq/L Carbon Dioxide 26 24 (23-29) mEq/L BUN 29 H 26 H (8-23) mg/dL Creatinine 1.32 H 1.04 (0.60-1.20) mg/dL Glucose 130 H 106 H (70-105) mg/dL Calcium 9.3 9.2 (8.6-10.3) mg/dL AST 208 H (13-39) Units/L ALT 212 H (7-52) Units/L Alkaline Phosphatase 159 H (34-104) Units/L Albumin 3.4 L (3.5-5.7) g/dL Calcium panel 08/27/18 08/28/18 Range/Units 19:35 04:47 Calcium 9.3 9.2 (8.6-10.3) mg/dL Albumin 3.4 L (3.5-5.7) g/dL Pituitary panel 08/27/18 08/28/18 Range/Units 19:35 04:47 Sodium 139 138 (136-145) mEq/L Potassium 4.1 3.7 (3.5-5.1) mEq/L Chloride 106 105 (98-107) mEq/L Carbon Dioxide 26 24 (23-29) mEq/L BUN 29 H 26 H (8-23) mg/dL Creatinine 1.32 H 1.04 (0.60-1.20) mg/dL Glucose 130 H 106 H (70-105) mg/dL Calcium 9.3 9.2 (8.6-10.3) mg/dL Adrenal panel 08/27/18 08/28/18 Range/Units 19:35 04:47 Sodium 139 138 (136-145) mEq/L Potassium 4.1 3.7 (3.5-5.1) mEq/L Chloride 106 105 (98-107) mEq/L Carbon Dioxide 26 24 (23-29) mEq/L BUN 29 H 26 H (8-23) mg/dL Creatinine 1.32 H 1.04 (0.60-1.20) mg/dL Glucose 130 H 106 H (70-105) mg/dL Calcium 9.3 9.2 (8.6-10.3) mg/dL Total Bilirubin 3.5 H (0.3-1.0) mg/dL AST 208 H (13-39) Units/L ALT 212 H (7-52) Units/L Alkaline Phosphatase 159 H (34-104) Units/L Albumin 3.4 L (3.5-5.7) g/dL All other labs normal. - Imaging CT scan - chest: image reviewed (post-op changes with pneumomediastinum) Consult Discharge Plan - Plan Referrals: Maddi Pizano, CORPORATE RESPONSIBILITY OFFICER [Primary Care Provider] -
[2018-08-28] MEDS: *HR* Heparin 5,000 UNIT/ML VIAL SQ SCH ×2 (06:47→17:22)
[2018-08-28] MEDS: Pantoprazole 40 MG VIAL IVP SCH ×2 (06:48→17:08)
[2018-08-28] MEDS ORDERED: *HR* Midazolam HCl 5 MG/5 ML VIAL IVP ONE (08:22)
[2018-08-28] MEDS ORDERED: *HR* FentaNYL (PF) 100 MCG/2 ML VIAL IVP ONE (08:22)
[2018-08-28] MEDS: MetroNIDAZOLE 500 MG/100 ML 500 MG/100 ML BAG IVPB SCH ×2 (08:23→17:06)
[2018-08-28] MEDS: 0.9 % Sodium Chloride 1,000 ML IVC SCH ×2 (08:24→17:07)
[2018-08-28] MEDS: Piperacillin/Tazobactam 3.375 GM in 0.9 % Sodium Chloride Mini Bag 100 ML IVPB SCH ×2 (08:24→17:07)
[2018-08-28] MEDS ORDERED: Baclofen 10 MG TABLET PO PRN (08:29)
[2018-08-28] MEDS: *HR* FentaNYL (PF) 100 MCG/2 ML VIAL IVP PRN (08:47)
--- NOTE | 2018-08-28 10:20 | Electrocardiograph Report ---
[place] [address] Test Date: 2018-08-27 Pat Name: Brionna Ackerman Department: [id number] Room: 3A42 Gender: F Research Biologist: : 1940 Requested By: Sen Payne Order Number: [id number] Reading MD: Radha Mike Measurements Intervals [place] Rate: 64 P: 68 OK: 206 QRS: 67 QRSD: 84 T: 42 QT: 396 QTc: 409 Interpretive Statements Sinus rhythm Low voltage, precordial leads Electronically Signed On 08-28-2018 10:18:43 EDT by Radha Mike
[2018-08-28] MEDS: methylPREDNISolone 125 MG/2 ML VIAL IVP SCH ×2 (12:24→17:08)
--- NOTE | 2018-08-28 14:51 | Event Note ---
Date of Encounter: 08/28/18 Time of Encounter: 09:35 Patient complaints of chest pain but appears to be improving after she received pain medication. Discussed with surgery. Recommend to keep patient nothing by mouth. Continue pain medications as ordered. Patient has also been ordered and Solu-Medrol to help reduce inflammation. Continue antibiotics for pneumonitis. Troponins. Get 0.32 and trending down now. Most likely from demand ischemia. Obtaining 2-D echocardiogram. Will follow results. Continue IV hydration.
[2018-08-28] MEDS ORDERED: Piperacillin/Tazobactam 3.375 GM VIAL ONE (16:43)
[2018-08-29] MEDS: Piperacillin/Tazobactam 3.375 GM in 0.9 % Sodium Chloride Mini Bag 100 ML IVPB SCH ×4 (00:51→22:55)
[2018-08-29] MEDS: methylPREDNISolone 125 MG/2 ML VIAL IVP SCH ×5 (00:51→22:56)
[2018-08-29] MEDS: MetroNIDAZOLE 500 MG/100 ML 500 MG/100 ML BAG IVPB SCH ×4 (00:52→22:55)
[2018-08-29] MEDS: 0.9 % Sodium Chloride 1,000 ML IVC SCH ×3 (00:53→22:56)
[2018-08-29 06:48] LABS: Basophils % 0.1 %; Hematocrit 34.7 % (35.3-44.9); Hemoglobin 11.1 g/dL (11.5-15.4); Immature Granulocytes % 0.5 % (0-4); Lymphocytes # 0.6 K/mcL (0.6-4.6); Lymphocytes % 5.4 %; Mean Corpuscular Hemoglobin 30.7 pg (28.0-33.3); Mean Corpuscular Volume 95.9 fL (83.0-100.0); Mean Platelet Volume 10.2 fL (9.4-12.4); Monocytes # 0.3 K/mcL (0.0-1.3); Monocytes % 2.6 %; Platelet Count 220 K/mcL (140-400); Red Blood Count 3.62 M/mcL (3.82-4.97); Red Cell Distribution Width 12.9 % (11.5-14.5); Segmented Neutrophils % 91.4 %
[2018-08-29] MEDS: *HR* Heparin 5,000 UNIT/ML VIAL SQ SCH ×2 (06:49→17:41)
[2018-08-29] MEDS: Pantoprazole 40 MG VIAL IVP SCH ×2 (06:49→17:40)
[2018-08-29] MEDS: *HR* FentaNYL (PF) 100 MCG/2 ML VIAL IVP PRN (06:50)
[2018-08-29] MEDS ORDERED: Bisacodyl 10 MG RECTAL SUPPOSITORY RC PRN (07:07)
[2018-08-29 07:14] LABS: BUN/Creatinine Ratio 28 (6-26); Blood Urea Nitrogen 29 mg/dL (8-23); Carbon Dioxide 22 mEq/L (23-29); Chloride 108 mEq/L (98-107); Glucose 130 mg/dL (70-105); Osmolality,Calculated 298 (280-300); Potassium 3.5 mEq/L (3.5-5.1); Sodium 140 mEq/L (136-145); eGFR For African Americans > 60 (> 60); eGFR For Non-African Americans 51 (> 60)
--- NOTE | 2018-08-29 09:00 | AcuteCareSurgery Progress Note ---
Date of Encounter: 08/29/18 Time of Encounter: 07:00 - Assessment and Plan (1) Odynophagia Current Visit: Yes Status: Acute S/P robo Everardo with HH repair. Improved since admission. Maintain NPO and IV solumedrol. Will repeat esophagram in am. If esophagram is improved and edema is resolving will start clear liquid diet. If Esohagram is unchanged, then will initiate PICC and TPN. (2) Acute kidney injury Current Visit: Yes Status: Acute resolved with IVF (3) Elevated troponin Current Visit: Yes Status: Acute Resolving. (4) CKD (chronic kidney disease), stage III Current Visit: No Status: Acute (5) HTN (hypertension) Current Visit: No Status: Acute Restart home meds when PO intake has started Qualifiers: Hypertension type: essential hypertension Qualified Code(s): I10 - Essential (primary) hypertension Subjective Patient reports: no new complaints, feels better, still having pain, pain is less, flatus, no bowel movement, afebrile Narrative: Pt reports that swallowing seems easier. SOB is improved but, she still cannot take as deep of breath as she would like. She is reassured that that is not unexpected post-op Everardo with HH repair. Objective Vital Signs - Last 8 Hours Temp Pulse Resp BP Pulse Ox 08/29/18 06:52 97.9 F 69 15 155/79 92 08/29/18 03:09 97.7 F 88 15 155/67 92 Intake and Output 08/28/18 08/29/18 08/29/18 23:59 07:59 15:59 Intake Total 1200 / 2400 200 / 200 Balance 1200 / 2400 200 / 200 Intake: IV Fluids 1200 / 2400 200 / 200 0.9 % Sodium Chloride 1,000 ML 1000 / 1000 @ 100 mls/hr IVC .Q10H FLY Rx#: [id number] Flagyl Premix 500 MG/100 ML 500 100 / 200 100 / 100 mg In 100 ml @ 100 mls/hr IVPB Q8HR FLY Rx#:[id number] Zosyn 3.375 GM In 0.9 % Sodium 100 / 200 100 / 100 Chloride (Mini-Bag +) 100 ML @ 25 mls/hr IVPB Q8HR FLY Rx#: [id number] Other: Weight 85 kg Blood Glucose* 126 124 Patient Weight 08/29/18 23:59 Weight 85 kg - General physical appearance no distress, no pain - Eyes PERRL, normal ocular movement - ENT normal mucosa, no congestion - Neck Neck exam: no lymphadectomy, no venous distension - Respiratory normal respiratory effort rales: left (left lower lung) - Cardiovascular Cardiovascular exam: Present: RRR. Absent: JVD - Abdomen Abdomen: Present: bowel sounds present, soft, tender (as expected post-op) Abdominal Tenderness: LUQ - Incision Incision: Present: clean and dry, intact - Neurologic CN 2-12 grossly intact, normal coordination - Musculoskeletal normal posture - Psychiatric oriented to time, oriented to person, oriented to place - Labs 08/29/18 06:05 08/29/18 06:05 Diabetes panel 08/29/18 Range/Units 06:05 Sodium 140 (136-145) mEq/L Potassium 3.5 (3.5-5.1) mEq/L Chloride 108 H (98-107) mEq/L Carbon Dioxide 22 L (23-29) mEq/L BUN 29 H (8-23) mg/dL Creatinine 1.05 (0.60-1.20) mg/dL Glucose 130 H (70-105) mg/dL Calcium 9.0 (8.6-10.3) mg/dL Calcium panel 08/29/18 Range/Units 06:05 Calcium 9.0 (8.6-10.3) mg/dL Pituitary panel 08/29/18 Range/Units 06:05 Sodium 140 (136-145) mEq/L Potassium 3.5 (3.5-5.1) mEq/L Chloride 108 H (98-107) mEq/L Carbon Dioxide 22 L (23-29) mEq/L BUN 29 H (8-23) mg/dL Creatinine 1.05 (0.60-1.20) mg/dL Glucose 130 H (70-105) mg/dL Calcium 9.0 (8.6-10.3) mg/dL Adrenal panel 08/29/18 Range/Units 06:05 Sodium 140 (136-145) mEq/L Potassium 3.5 (3.5-5.1) mEq/L Chloride 108 H (98-107) mEq/L Carbon Dioxide 22 L (23-29) mEq/L BUN 29 H (8-23) mg/dL Creatinine 1.05 (0.60-1.20) mg/dL Glucose 130 H (70-105) mg/dL Calcium 9.0 (8.6-10.3) mg/dL Consult Discharge Plan - Plan Referrals: Maddi Pizano, HVAC ESTIMATOR [Primary Care Provider] -
--- NOTE | 2018-08-29 11:28 | Electrocardiograph Report ---
[place] [address] Test Date: 2018-08-28 Pat Name: Brionna Ackerman Department: 115 Room: 3A42 Gender: F Blood Coordinator: : 1940 Requested By: Jean Gonzales Order Number: [id number] Reading MD: Radha Mike Measurements Intervals [place] Rate: 74 P: 55 VT: 207 QRS: 26 QRSD: 85 T: 37 QT: 370 QTc: 397 Interpretive Statements SINUS RHYTHM Electronically Signed On 08-29-2018 11:26:25 EDT by Radha Mike
--- NOTE | 2018-08-29 15:24 | Internal Med Progress Note ---
Hospitalist Progress Note - Encounter Date of Encounter: 08/29/18 Time of Encounter: 15:20 - Subjective Interval History: Evaluated patient earlier today. Reports that her chest discomfort has improved. Pain and nausea controlled with current medications. No fevers or chills reported. No shortness of breath. - Exam Vitals: Temp Pulse Resp BP Pulse Ox 97.9 F 69 15 155/79 92 08/29/18 06:52 08/29/18 06:52 08/29/18 06:52 08/29/18 06:52 08/29/18 06:52 Exam: General: Patient is alert, no acute distress, oriented x 3 Respiratory: Good respiratory effort. Normal breath sounds. No wheezing or crackles. Cardiovascular: Regular rate and rhythm. s1 and s2 normal No clicks, rubs, gallops, or murmurs. No pedal edema Abdomen: Abdomen is soft, tender in the epigastric region. Bowel sounds are present Musculoskeletal: Spontaneously moving all extremities Skin: warm, dry, intact. Neuro: Alert oriented x 3 normal cranial nerves, no focal deficits - Assessment and Plan (1) Acute kidney injury Current Visit: Yes Status: Acute (2) Elevated troponin Current Visit: Yes Status: Acute (3) Odynophagia Current Visit: Yes Status: Acute (4) DVT prophylaxis Current Visit: Yes Status: Acute DVT Prophylaxis: Continue subcutaneous heparin - Summary of Assessment and Plan Summary of Assessment and Plan: Acute chest pain: Most likely related to recent surgery. Troponins were elevated but very minimally. Echocardiogram shows EF of 65-70% with normal motion in all wall segments. No further cardiac workup recommended at this time. Odynophagia/dysphagia: Related to recent Everardo fundoplication. Surgery following. Recommended esophagogram tomorrow. Will follow results. Keep nothing by mouth. Continue IV fluids. Continue steroids per surgery recommendations Acute kidney injury: Resolved. Continue IV hydration. Essential hypertension: Essential hypertension: Patient is nothing by mouth as such she is receiving intravenous medications as needed to control blood pressure. Will monitor vital signs. DVT prophylaxis with subcutaneous heparin - Time Spent with Patient Total time spent is greater than 50% in coordination of care (as documented) at patient's floor/unit and/or counseling patient: Internal Medicine: Result - Labs CBC & Chem 7: 08/29/18 06:05 08/29/18 06:05 Labs: Short CBC 08/29/18 Range/Units 06:05 WBC 11.0 (4.3-11.1) K/mcL Hgb 11.1 L (11.5-15.4) g/dL Hct 34.7 L (35.3-44.9) % Plt Count 220 (140-400) K/mcL Neutrophils # 10.0 H (1.6-8.9) K/mcL BMP 08/29/18 06:05 Sodium 140 Potassium 3.5 Chloride 108 H Carbon Dioxide 22 L BUN 29 H Creatinine 1.05 Glucose 130 H Calcium 9.0 Cardiac Enzymes 08/28/18 Range/Units 16:47 Troponin I 0.15 H* (< 0.04) ng/mL - ABG Interpretation ABG results: PT/INR, D-dimer PT 12.8 Seconds (9.4-12.1) H 08/28/18 04:47 - Impressions Impressions Echocardiogram 08/29/18 03:19 Impressions: LVEF 65-70%. Mild left ventricular diastolic dysfunction. Normal right ventricular structure and function. No significant valvular dysfunction. Unable to estimate RVSP due to lack of TR jet. No evidence of pulmonary hypertension. Left Ventricular Wall Motion: Rest Echo Findings All wall segments showed normal motion. Findings: Study Quality * Technically adequate exam. ECG Findings * Normal sinus rhythm. Left Ventricle * LVEF 65-70%. * Normal LV chamber size, wall thickness and systolic function. * Mild left ventricular diastolic dysfunction. Right Ventricle * Normal right ventricular structure and function. Left Atrium * Normal left atrial size. Right Atrium * Normal right atrial size. Interatrial Septum * Interatrial septum not well evaluated. * No evidence of PFO by color Doppler. Aortic Valve * Aortic valve not well visualized. * Mildly calcified aortic valve leaflets. * No aortic stenosis. * No aortic regurgitation. Mitral Valve * Normal mitral valve structure. * No mitral stenosis. * Trace mitral regurgitation. Tricuspid Valve * Normal tricuspid valve structure. * No tricuspid stenosis. * Trace tricuspid regurgitation. * Unable to estimate RVSP due to lack of TR jet. * No evidence of pulmonary hypertension. * Estimated RA pressure is 3 mmHg. Pulmonic Valve * Pulmonic valve is not well visualized. * No pulmonic stenosis. * No pulmonic regurgitation. Aorta * Normally sized aortic root. Pericardium * The pericardium appears normal. IVC * The IVC is not dilated. * > 50% respiratory change Consult Discharge Plan - Plan Referrals: Maddi Pizano, INDUSTRIAL ELECTRICAL TECHNICIAN [Primary Care Provider] -
[2018-08-30] MEDS: methylPREDNISolone 125 MG/2 ML VIAL IVP SCH ×4 (05:33→23:02)
[2018-08-30] MEDS: Pantoprazole 40 MG VIAL IVP SCH ×2 (05:33→18:09)
[2018-08-30] MEDS: *HR* Heparin 5,000 UNIT/ML VIAL SQ SCH ×2 (05:37→18:06)
[2018-08-30 06:24] LABS: Hematocrit 35.3 % (35.3-44.9); Hemoglobin 11.4 g/dL (11.5-15.4); Immature Granulocytes % 0.8 % (0-4); Lymphocytes # 0.6 K/mcL (0.6-4.6); Mean Corpuscular HGB Conc 32.3 g/dL (31.6-35.5); Mean Corpuscular Hemoglobin 30.8 pg (28.0-33.3); Mean Corpuscular Volume 95.4 fL (83.0-100.0); Mean Platelet Volume 10.1 fL (9.4-12.4); Monocytes # 0.4 K/mcL (0.0-1.3); Monocytes % 3.1 %; Neutrophils # 10.3 K/mcL (1.6-8.9); Platelet Count 247 K/mcL (140-400); Red Cell Distribution Width 13.1 % (11.5-14.5); Segmented Neutrophils % 91.1 %; White Blood Count 11.3 K/mcL (4.3-11.1)
[2018-08-30 06:49] LABS: Calcium 8.8 mg/dL (8.6-10.3); Potassium 3.5 mEq/L (3.5-5.1)
[2018-08-30] MEDS: 0.9 % Sodium Chloride 1,000 ML IVC SCH ×2 (09:26→23:13)
[2018-08-30] MEDS: Piperacillin/Tazobactam 3.375 GM in 0.9 % Sodium Chloride Mini Bag 100 ML IVPB SCH ×3 (09:29→23:03)
--- NOTE | 2018-08-30 13:28 | Internal Med Progress Note ---
Hospitalist Progress Note - Encounter Date of Encounter: 08/30/18 Time of Encounter: 09:30 - Subjective Interval History: Patient feels that she is getting better today. She is scheduled to undergo esophagogram today. No chest pain. No palpitations. No fevers reported overnight. - Exam Vitals: Temp Pulse Resp BP Pulse Ox 98.2 F 82 16 153/71 93 08/30/18 10:06 08/30/18 10:06 08/30/18 10:06 08/30/18 10:06 08/30/18 10:06 Exam: General: Patient is alert, no acute distress, oriented x 3 Respiratory: Normal breath sounds. No wheezing or crackles. Cardiovascular: Regular rate and rhythm. s1 and s2 normal No clicks, rubs, gallops, or murmurs. No pedal edema Abdomen: Abdomen is soft, tender in the epigastric region. Bowel sounds are present Musculoskeletal: Spontaneously moving all extremities Skin: warm, dry, intact. Neuro: Alert oriented x 3 normal cranial nerves, no focal deficits - Assessment and Plan (1) Acute kidney injury Current Visit: Yes Status: Acute (2) Elevated troponin Current Visit: Yes Status: Acute (3) Odynophagia Current Visit: Yes Status: Acute (4) DVT prophylaxis Current Visit: Yes Status: Acute DVT Prophylaxis: Continue subcutaneous heparin - Summary of Assessment and Plan Summary of Assessment and Plan: Acute chest pain: Appears to be improving. Most likely related to recent surgery. Odynophagia/dysphagia: Keep nothing by mouth. Awaiting esophagogram today. Surgery following. IV fluids. Continue steroids. Acute kidney injury: Resolved. Remains on IV hydration. Rising BUN most likely related to steroid use. Essential hypertension: As patient remains nothing by mouth, we will place her on IV Lopressor 2.5 mg every 6 ours to control her blood pressure. DVT prophylaxis with subcutaneous heparin - Time Spent with Patient Total time spent is greater than 50% in coordination of care (as documented) at patient's floor/unit and/or counseling patient: Internal Medicine: Result - Labs CBC & Chem 7: 08/30/18 05:11 08/30/18 05:11 Labs: Short CBC 08/30/18 Range/Units 05:11 WBC 11.3 H (4.3-11.1) K/mcL Hgb 11.4 L (11.5-15.4) g/dL Hct 35.3 (35.3-44.9) % Plt Count 247 (140-400) K/mcL Neutrophils # 10.3 H (1.6-8.9) K/mcL BMP 08/30/18 05:11 Sodium 145 Potassium 3.5 Chloride 111 H Carbon Dioxide 21 L BUN 44 H Creatinine 1.13 Glucose 131 H Calcium 8.8 - ABG Interpretation ABG results: PT/INR, D-dimer PT 12.8 Seconds (9.4-12.1) H 08/28/18 04:47 - Impressions Impressions Barium Swallow X-Ray 08/30/18 11:00 IMPRESSION: Majority of contrast progresses through the gastroesophageal junction, however there is persistent pooling of contrast in the esophagus. D/ / Urban Márquez / Urban Márquez Interpreting Provider: Urban Márquez Consult Discharge Plan - Plan Referrals: Maddi Pizano, SENIOR QUALITY ASSURANCE SPECIALIST [Primary Care Provider] -
--- NOTE | 2018-08-30 13:36 | General Surgery Progress Note ---
Date of Encounter: 08/30/18 Time of Encounter: 08:45 - Assessment and Plan (1) Hiatal hernia Current Visit: No Status: Acute Her esophagogram reveals some pooling of contrast in her distal esophagus. This does reveal some swelling of the GE junction. We will maintain nothing by mouth status for now. Subjective Patient reports: pain is less Narrative: This is a 77-year-old female that is postoperative day #5 from robotic Everardo fundoplication for a large hiatal hernia. Currently she feels much better than during her admission on Thursday. She states she has 0 nausea. She has feels like she is able to handle her saliva. She does have some shortness of breath however she feels its improved since surgery. Objective Vital Signs - Last 8 Hours Temp Pulse Resp BP Pulse Ox 08/30/18 10:06 98.2 F 82 16 153/71 93 08/30/18 08:30 93 08/30/18 06:39 97.9 F 77 16 129/66 92 Intake and Output 08/29/18 08/30/18 08/30/18 23:59 07:59 15:59 Intake Total 1200 / 2600 200 / 1200 1000 / 1200 Output Total 0 / 0 Balance 1200 / 2600 200 / 1200 1000 / 1200 Intake: IV Fluids 1200 / 2600 200 / 1200 1000 / 1200 0.9 % Sodium Chloride 1,000 ML 1000 / 2000 1000 / 1000 @ 100 mls/hr IVC .Q10H [facility] Rx#: [id number] Flagyl Premix 500 MG/100 ML 500 100 / 300 100 / 100 mg In 100 ml @ 100 mls/hr IVPB Q8HR [facility] Rx#:[id number] Zosyn 3.375 GM In 0.9 % Sodium 100 / 300 100 / 100 Chloride (Mini-Bag +) 100 ML @ 25 mls/hr IVPB Q8HR [facility] Rx#: [id number] Output: Urine 0 / 0 Other: # Voids 1 1 Weight 85.3 kg Blood Glucose* 127 114 109 Patient Weight 08/30/18 23:59 Weight 85.3 kg - General physical appearance well developed, well nourished, no distress - Neck Neck exam: trachea midline - Abdomen Abdomen: Present: bowel sounds present, soft - Neurologic CN 2-12 grossly intact, normal sensation - Psychiatric oriented to time, oriented to person, oriented to place - Labs 08/30/18 05:11 08/30/18 05:11 Diabetes panel 08/30/18 Range/Units 05:11 Sodium 145 (136-145) mEq/L Potassium 3.5 (3.5-5.1) mEq/L Chloride 111 H (98-107) mEq/L Carbon Dioxide 21 L (23-29) mEq/L BUN 44 H (8-23) mg/dL Creatinine 1.13 (0.60-1.20) mg/dL Glucose 131 H (70-105) mg/dL Calcium 8.8 (8.6-10.3) mg/dL Calcium panel 08/30/18 Range/Units 05:11 Calcium 8.8 (8.6-10.3) mg/dL Pituitary panel 08/30/18 Range/Units 05:11 Sodium 145 (136-145) mEq/L Potassium 3.5 (3.5-5.1) mEq/L Chloride 111 H (98-107) mEq/L Carbon Dioxide 21 L (23-29) mEq/L BUN 44 H (8-23) mg/dL Creatinine 1.13 (0.60-1.20) mg/dL Glucose 131 H (70-105) mg/dL Calcium 8.8 (8.6-10.3) mg/dL Adrenal panel 08/30/18 Range/Units 05:11 Sodium 145 (136-145) mEq/L Potassium 3.5 (3.5-5.1) mEq/L Chloride 111 H (98-107) mEq/L Carbon Dioxide 21 L (23-29) mEq/L BUN 44 H (8-23) mg/dL Creatinine 1.13 (0.60-1.20) mg/dL Glucose 131 H (70-105) mg/dL Calcium 8.8 (8.6-10.3) mg/dL - Imaging Abdominal x-ray: image reviewed Consult Discharge Plan - Plan Referrals: Maddi Pizano, ANDREW [Primary Care Provider] -
[2018-08-30] MEDS: *HR* Metoprolol 5 MG/5 ML VIAL IVP SCH ×2 (18:07→23:03)
[2018-08-30] MEDS ORDERED: Artificial Tears SOLN 15 ML BOTTLE BOTH EYES ONE (21:53)
[2018-08-30] MEDS ORDERED: Artificial Tears SOLN 15 ML BOTTLE BOTH EYES PRN (21:57)
[2018-08-30] MEDS ORDERED: *HR* FentaNYL (PF) 100 MCG/2 ML VIAL IVP ONE (22:45)
[2018-08-31] MEDS ORDERED: *HR* Promethazine 25 MG/ML VIAL IVP ONE (01:34)
[2018-08-31] MEDS: methylPREDNISolone 125 MG/2 ML VIAL IVP SCH ×4 (06:26→23:59)
[2018-08-31] MEDS: *HR* Heparin 5,000 UNIT/ML VIAL SQ SCH ×2 (06:26→18:31)
[2018-08-31] MEDS: *HR* Metoprolol 5 MG/5 ML VIAL IVP SCH ×2 (06:28→11:39)
[2018-08-31] MEDS: Pantoprazole 40 MG VIAL IVP SCH ×2 (06:29→18:31)
[2018-08-31 07:53] LABS: Hemoglobin 11.2 g/dL (11.5-15.4); Immature Granulocytes % 0.6 % (0-4); Lymphocytes # 0.5 K/mcL (0.6-4.6); Lymphocytes % 6.4 %; Mean Corpuscular Hemoglobin 31.5 pg (28.0-33.3); Mean Corpuscular Volume 98.3 fL (83.0-100.0); Mean Platelet Volume 9.7 fL (9.4-12.4); Monocytes # 0.3 K/mcL (0.0-1.3); Neutrophils # 7.2 K/mcL (1.6-8.9); Platelet Count 277 K/mcL (140-400); Red Blood Count 3.56 M/mcL (3.82-4.97); Red Cell Distribution Width 13.4 % (11.5-14.5); White Blood Count 8.1 K/mcL (4.3-11.1)
[2018-08-31 08:10] LABS: Calcium 8.9 mg/dL (8.6-10.3); Potassium 3.6 mEq/L (3.5-5.1)
[2018-08-31] MEDS: D5% in 0.45% NACL 1,000 ML IVC SCH (09:26)
[2018-08-31] MEDS: Piperacillin/Tazobactam 3.375 GM in 0.9 % Sodium Chloride Mini Bag 100 ML IVPB SCH ×2 (09:27→16:17)
--- NOTE | 2018-08-31 13:38 | Internal Med Progress Note ---
Hospitalist Progress Note - Encounter Date of Encounter: 08/31/18 Time of Encounter: 13:30 - Subjective Interval History: Patient doing well today. Sitting up in bed. Has been started on clear liquid diet. Has had bowel movements. Feels much better overall. Denies any chest pain or palpitations today. No shortness of breath. - Exam Vitals: Temp Pulse Resp BP Pulse Ox 98.2 F 59 20 160/74 94 08/31/18 12:28 08/31/18 12:28 08/31/18 12:28 08/31/18 12:28 08/31/18 12:28 Exam: General: Patient is alert, no acute distress, oriented x 3 Respiratory: Normal breath sounds. No wheezing or crackles. Cardiovascular: Regular rate and rhythm. s1 and s2 normal No clicks, rubs, gallops, or murmurs. No pedal edema Abdomen: Abdomen is soft, tender in the epigastric region. Bowel sounds are present Musculoskeletal: Spontaneously moving all extremities Skin: warm, dry, intact. Neuro: Alert oriented x 3 normal cranial nerves, no focal deficits - Assessment and Plan (1) Acute kidney injury Current Visit: Yes Status: Acute (2) Elevated troponin Current Visit: Yes Status: Acute (3) Odynophagia Current Visit: Yes Status: Acute (4) DVT prophylaxis Current Visit: Yes Status: Acute DVT Prophylaxis: Continue subcutaneous heparin - Summary of Assessment and Plan Summary of Assessment and Plan: Acute chest pain: Resolved. Most likely related to recent surgical procedure. Aspiration pneumonia: Likely from/gastric contents. Continue zosyn. Present on admission per CT. Odynophagia/dysphagia: Started on clear liquid diet today. Only sips for now. Will monitor closely. Advance slowly per surgery recommendations. Acute kidney injury: Creatinine 1.25 today. Patient also has hypernatremia and hyperchloremia. Likely due to normal saline infusion. We will change fluids to D5 half NS. Monitor renal function. Essential hypertension: Continue IV hydralazine as needed. Patient has been on low-dose IV Lopressor but heart rate less than 60 today. As such she has not received this medication. We will transition to oral Toprol from tomorrow. DVT prophylaxis with subcutaneous heparin - Time Spent with Patient Total time spent is greater than 50% in coordination of care (as documented) at patient's floor/unit and/or counseling patient: Internal Medicine: Result - Labs CBC & Chem 7: 08/31/18 07:29 08/31/18 07:29 Labs: Short CBC 08/31/18 Range/Units 07:29 WBC 8.1 (4.3-11.1) K/mcL Hgb 11.2 L (11.5-15.4) g/dL Hct 35.0 L (35.3-44.9) % Plt Count 277 (140-400) K/mcL Neutrophils # 7.2 (1.6-8.9) K/mcL BMP 08/31/18 07:29 Sodium 150 H Potassium 3.6 Chloride 116 H Carbon Dioxide 20 L BUN 54 H Creatinine 1.25 H Glucose 140 H Calcium 8.9 - ABG Interpretation ABG results: PT/INR, D-dimer PT 12.8 Seconds (9.4-12.1) H 08/28/18 04:47 Consult Discharge Plan - Plan Referrals: Maddi Pizano, PHYSICAL FITNESS TRAINER [Primary Care Provider] - (Web request. Office will call with date and time of appointment. Thank you)
[2018-08-31] MEDS ORDERED: Amoxicillin/Clavulanate 500 MG TABLET PO SCH (17:00)
--- NOTE | 2018-08-31 18:22 | AcuteCareSurgery Progress Note ---
<Patricia Tirado - Last Filed: 08/31/18 18:19> Date of Encounter: 08/31/18 Time of Encounter: 07:45 - Assessment and Plan (1) Odynophagia Current Visit: Yes Status: Acute UGI is improved but notes some continued pooling. Pt reports symptoms improved. we will trial Everardo clears today. Continue current treatments otherwise. Consider reducing or stopping steroids in the am. No large pills by mouth. Subjective Patient reports: no new complaints, feels better, still having pain, pain is less, voiding w/o difficulty, no flatus, no bowel movement, afebrile Narrative: UGI notes improvement, but still some pooling Objective Vital Signs - Last 8 Hours Temp Pulse Resp BP Pulse Ox 08/31/18 16:04 98.2 F 56 20 160/76 93 08/31/18 12:28 98.2 F 59 20 160/74 94 Intake and Output 08/31/18 08/31/18 08/31/18 07:59 15:59 23:59 Intake Total 100 / 100 Balance 100 / 100 Intake: IV Fluids 100 / 100 Zosyn 3.375 GM In 0.9 % Sodium 100 / 100 Chloride (Mini-Bag +) 100 ML @ 25 mls/hr IVPB Q8HR [facility] Rx#: [id number] Other: Weight 84.8 kg Blood Glucose* 126 157 Patient Weight 08/31/18 23:59 Weight 84.8 kg - General physical appearance no distress - ENT atraumatic, normocephalic - Neck Neck exam: trachea midline - Respiratory other (normal breath sounds; appears SOB at rest) - Cardiovascular Cardiovascular exam: Present: RRR - Abdomen Abdomen: Present: bowel sounds present, soft, tender (expected postoperative) - Incision Incision: Present: clean and dry, intact - Musculoskeletal normal posture - Psychiatric oriented to time, oriented to person, oriented to place - Labs 08/31/18 07:29 08/31/18 07:29 Diabetes panel 08/31/18 Range/Units 07:29 Sodium 150 H (136-145) mEq/L Potassium 3.6 (3.5-5.1) mEq/L Chloride 116 H (98-107) mEq/L Carbon Dioxide 20 L (23-29) mEq/L BUN 54 H (8-23) mg/dL Creatinine 1.25 H (0.60-1.20) mg/dL Glucose 140 H (70-105) mg/dL Calcium 8.9 (8.6-10.3) mg/dL Calcium panel 08/31/18 Range/Units 07:29 Calcium 8.9 (8.6-10.3) mg/dL Pituitary panel 08/31/18 Range/Units 07:29 Sodium 150 H (136-145) mEq/L Potassium 3.6 (3.5-5.1) mEq/L Chloride 116 H (98-107) mEq/L Carbon Dioxide 20 L (23-29) mEq/L BUN 54 H (8-23) mg/dL Creatinine 1.25 H (0.60-1.20) mg/dL Glucose 140 H (70-105) mg/dL Calcium 8.9 (8.6-10.3) mg/dL Adrenal panel 08/31/18 Range/Units 07:29 Sodium 150 H (136-145) mEq/L Potassium 3.6 (3.5-5.1) mEq/L Chloride 116 H (98-107) mEq/L Carbon Dioxide 20 L (23-29) mEq/L BUN 54 H (8-23) mg/dL Creatinine 1.25 H (0.60-1.20) mg/dL Glucose 140 H (70-105) mg/dL Calcium 8.9 (8.6-10.3) mg/dL Consult Discharge Plan - Plan Referrals: Maddi Pizano, PUNCH PRESS FEEDER [Primary Care Provider] - (Web request. Office will call with date and time of appointment. Thank you) <Dimas Maddox - Last Filed: 08/31/18 20:45> Date of Encounter: 08/31/18 - Assessment and Plan (1) Odynophagia Current Visit: Yes Status: Acute (2) Acute kidney injury Current Visit: Yes Status: Acute (3) Elevated troponin Current Visit: Yes Status: Acute (4) CKD (chronic kidney disease), stage III Current Visit: No Status: Acute (5) HTN (hypertension) Current Visit: No Status: Acute Qualifiers: Hypertension type: essential hypertension Qualified Code(s): I10 - Essential (primary) hypertension Objective Vital Signs - Last 8 Hours Temp Pulse Resp BP Pulse Ox 08/31/18 18:50 97.9 F 53 15 167/64 95 08/31/18 16:04 98.2 F 56 20 160/76 93 Intake and Output 08/31/18 08/31/18 08/31/18 07:59 15:59 23:59 Intake Total 100 / 100 0 / 100 Output Total 0 / 0 Balance 100 / 100 0 / 100 Intake: IV Fluids 100 / 100 Zosyn 3.375 GM In 0.9 % Sodium 100 / 100 Chloride (Mini-Bag +) 100 ML @ 25 mls/hr IVPB Q8HR [facility] Rx#: [id number] Oral 0 / 0 Output: Urine 0 / 0 Other: Weight 84.8 kg Blood Glucose* 126 157 Patient Weight 08/31/18 23:59 Weight 84.8 kg - Labs 08/31/18 07:29 08/31/18 07:29 Diabetes panel 08/31/18 Range/Units 07:29 Sodium 150 H (136-145) mEq/L Potassium 3.6 (3.5-5.1) mEq/L Chloride 116 H (98-107) mEq/L Carbon Dioxide 20 L (23-29) mEq/L BUN 54 H (8-23) mg/dL Creatinine 1.25 H (0.60-1.20) mg/dL Glucose 140 H (70-105) mg/dL Calcium 8.9 (8.6-10.3) mg/dL Calcium panel 08/31/18 Range/Units 07:29 Calcium 8.9 (8.6-10.3) mg/dL Pituitary panel 08/31/18 Range/Units 07:29 Sodium 150 H (136-145) mEq/L Potassium 3.6 (3.5-5.1) mEq/L Chloride 116 H (98-107) mEq/L Carbon Dioxide 20 L (23-29) mEq/L BUN 54 H (8-23) mg/dL Creatinine 1.25 H (0.60-1.20) mg/dL Glucose 140 H (70-105) mg/dL Calcium 8.9 (8.6-10.3) mg/dL Adrenal panel 08/31/18 Range/Units 07:29 Sodium 150 H (136-145) mEq/L Potassium 3.6 (3.5-5.1) mEq/L Chloride 116 H (98-107) mEq/L Carbon Dioxide 20 L (23-29) mEq/L BUN 54 H (8-23) mg/dL Creatinine 1.25 H (0.60-1.20) mg/dL Glucose 140 H (70-105) mg/dL Calcium 8.9 (8.6-10.3) mg/dL - Attending Attestation I examined this patient and my medical decision-making was reviewed with the PUNCH PRESS FEEDER. I agree with the documented findings, disposition and treatment plan as described except to the extent set forth below. Pt making improvement. Swallowing easier. COntinue IV solumedrol and advance diet. Possible DC tomorrow if tolerating Everardo liquid diet.
[2018-09-01] MEDS: D5% in 0.45% NACL 1,000 ML IVC SCH
[2018-09-01] MEDS: Piperacillin/Tazobactam 3.375 GM in 0.9 % Sodium Chloride Mini Bag 100 ML IVPB SCH ×3 (00:01→17:31)
[2018-09-01] MEDS: methylPREDNISolone 125 MG/2 ML VIAL IVP SCH ×3 (06:12→17:31)
[2018-09-01] MEDS: *HR* Heparin 5,000 UNIT/ML VIAL SQ SCH ×2 (06:12→17:31)
[2018-09-01] MEDS: Pantoprazole 40 MG VIAL IVP SCH ×2 (06:12→17:33)
[2018-09-01 06:29] LABS: Hematocrit 34.4 % (35.3-44.9); Hemoglobin 10.6 g/dL (11.5-15.4); Immature Granulocytes % 0.6 % (0-4); Lymphocytes # 0.4 K/mcL (0.6-4.6); Lymphocytes % 7.7 %; Mean Corpuscular HGB Conc 30.8 g/dL (31.6-35.5); Mean Corpuscular Hemoglobin 30.3 pg (28.0-33.3); Mean Corpuscular Volume 98.3 fL (83.0-100.0); Monocytes # 0.2 K/mcL (0.0-1.3); Monocytes % 4.6 %; Neutrophils # 4.5 K/mcL (1.6-8.9); Platelet Count 242 K/mcL (140-400); Red Cell Distribution Width 13.6 % (11.5-14.5); Segmented Neutrophils % 87.1 %; White Blood Count 5.2 K/mcL (4.3-11.1)
[2018-09-01 06:52] LABS: Calcium 8.7 mg/dL (8.6-10.3); Potassium 3.3 mEq/L (3.5-5.1)
[2018-09-01] MEDS ORDERED: Metoprolol XL (24 HR) Succ 25 MG TAB.ER.24H PO SCH (09:00)
[2018-09-01] MEDS: Potassium Chloride 40 MEQ in D5% in 0.45% NACL 1,000 ML IVC SCH (12:20)
--- NOTE | 2018-09-01 13:04 | Internal Med Progress Note ---
Hospitalist Progress Note - Encounter Date of Encounter: 09/01/18 Time of Encounter: 11:15 - Subjective Interval History: Tolerating clears well without difficulty. Denies any nausea/vomiting. No chest pain, lightheadedness, or palpitation. No fever overnight - Exam Vitals: Temp Pulse Resp BP Pulse Ox 98.3 F 98 14 159/62 98 09/01/18 12:35 09/01/18 12:35 09/01/18 12:35 09/01/18 12:35 09/01/18 12:35 Exam: General: Patient is alert, no acute distress, oriented x 3 Respiratory: Normal breath sounds. No wheezing or crackles. Cardiovascular: bradycardic, regular rhythm. s1 and s2 normal No clicks, rubs, gallops, or murmurs. Abdomen: Abdomen is soft, minimal tenderness in the epigastric region. Bowel sounds are present Musculoskeletal: Spontaneously moving all extremities Skin: warm, dry, intact. Neuro: Alert oriented x 3 normal cranial nerves, no focal deficits - Assessment and Plan (1) Odynophagia Current Visit: Yes Status: Acute Assessment and Plan: likely related to post-op edema from recent Everardo fundoplication steroids, baclofen per surgery started on clears which she is tolerating well. Will defer further diet advancement to surgery (2) Aspiration pneumonia Current Visit: Yes Status: Acute Assessment and Plan: CT showed bibasilar airspace disease as well as right upper lobe centrilobular nodules ?aspiration in the setting of recent Everardo fundoplication on zosyn, will transition to PO Augmentin to complete 7 day course once cleared to take pills by mouth (3) Acute kidney injury Current Visit: Yes Status: Acute Assessment and Plan: Cr at her baseline (4) Elevated troponin Current Visit: Yes Status: Acute Assessment and Plan: peaked at 0.32, echocardiogram showed preserved EF outpatient cardiology follow up (5) DVT prophylaxis Current Visit: Yes Status: Acute Assessment and Plan: Heparin SQ - Time Spent with Patient Total time spent is greater than 50% in coordination of care (as documented) at patient's floor/unit and/or counseling patient: 25 - 35 minutes Plan of Care Discussed with: patient (discussed with family members) Internal Medicine: Result - Labs CBC & Chem 7: 09/01/18 05:33 09/01/18 05:33 Labs: Short CBC 09/01/18 Range/Units 05:33 WBC 5.2 (4.3-11.1) K/mcL Hgb 10.6 L (11.5-15.4) g/dL Hct 34.4 L (35.3-44.9) % Plt Count 242 (140-400) K/mcL Neutrophils # 4.5 (1.6-8.9) K/mcL BMP 09/01/18 05:33 Sodium 147 H Potassium 3.3 L Chloride 115 H Carbon Dioxide 19 L BUN 54 H Creatinine 1.20 Glucose 205 H Calcium 8.7 - ABG Interpretation ABG results: PT/INR, D-dimer PT 12.8 Seconds (9.4-12.1) H 08/28/18 04:47 Consult Discharge Plan - Plan Referrals: Maddi Pizano, COLLEGE ATHLETIC DIRECTOR [Primary Care Provider] - (Web request. Office will call with date and time of appointment. Thank you) (2) Aspiration pneumonia Qualifiers: Aspiration pneumonia type: unspecified Laterality: bilateral Lung location: lower lobe of lung Qualified Code(s): J69.0 - Pneumonitis due to inhalation of food and vomit
--- NOTE | 2018-09-01 16:37 | General Surgery Progress Note ---
Date of Encounter: 09/01/18 Time of Encounter: 16:36 - Assessment and Plan (1) Hiatal hernia Current Visit: No Status: Acute Her esophagogram reveals some pooling of contrast in her distal esophagus. This does reveal some swelling of the GE junction. Plan for liquids for another 4 days and then she may begin mashed potato consistency type diet. I believe she may be able to be discharged later today or tomorrow. Subjective Patient reports: no new complaints, pain is less, tolerating liquids well Objective Vital Signs - Last 8 Hours Temp Pulse Resp BP Pulse Ox 09/01/18 16:00 97.5 F L 52 14 177/61 95 09/01/18 12:35 98.3 F 98 14 159/62 98 Intake and Output 09/01/18 09/01/18 09/01/18 07:59 15:59 23:59 Intake Total 200 / 860 660 / 860 Balance 200 / 860 660 / 860 Intake: IV Fluids 200 / 200 Zosyn 3.375 GM In 0.9 % Sodium 200 / 200 Chloride (Mini-Bag +) 100 ML @ 25 mls/hr IVPB Q8HR [facility] Rx#: [id number] Oral 660 / 660 Other: Meal Lunch Percent of Meal Consumed 30% Stool Consistency liquid # Voids 1 # Bowel Movements 1 - General physical appearance well nourished, no distress - ENT normal nares - Neck Neck exam: trachea midline - Respiratory normal respiratory effort - Cardiovascular Cardiovascular exam: Present: RRR - Abdomen Abdomen: Present: bowel sounds present - Labs 09/01/18 05:33 09/01/18 05:33 Diabetes panel 09/01/18 Range/Units 05:33 Sodium 147 H (136-145) mEq/L Potassium 3.3 L (3.5-5.1) mEq/L Chloride 115 H (98-107) mEq/L Carbon Dioxide 19 L (23-29) mEq/L BUN 54 H (8-23) mg/dL Creatinine 1.20 (0.60-1.20) mg/dL Glucose 205 H (70-105) mg/dL Calcium 8.7 (8.6-10.3) mg/dL Calcium panel 09/01/18 Range/Units 05:33 Calcium 8.7 (8.6-10.3) mg/dL Pituitary panel 09/01/18 Range/Units 05:33 Sodium 147 H (136-145) mEq/L Potassium 3.3 L (3.5-5.1) mEq/L Chloride 115 H (98-107) mEq/L Carbon Dioxide 19 L (23-29) mEq/L BUN 54 H (8-23) mg/dL Creatinine 1.20 (0.60-1.20) mg/dL Glucose 205 H (70-105) mg/dL Calcium 8.7 (8.6-10.3) mg/dL Adrenal panel 09/01/18 Range/Units 05:33 Sodium 147 H (136-145) mEq/L Potassium 3.3 L (3.5-5.1) mEq/L Chloride 115 H (98-107) mEq/L Carbon Dioxide 19 L (23-29) mEq/L BUN 54 H (8-23) mg/dL Creatinine 1.20 (0.60-1.20) mg/dL Glucose 205 H (70-105) mg/dL Calcium 8.7 (8.6-10.3) mg/dL Consult Discharge Plan - Plan Referrals: Maddi Pizano, [employer] [Primary Care Provider] - (Web request. Office will call with date and time of appointment. Thank you)
[2018-09-02] MEDS: Piperacillin/Tazobactam 3.375 GM in 0.9 % Sodium Chloride Mini Bag 100 ML IVPB SCH (00:25)
[2018-09-02] MEDS: methylPREDNISolone 125 MG/2 ML VIAL IVP SCH ×2 (00:26→05:26)
[2018-09-02 05:24] LABS: Hematocrit 35.1 % (35.3-44.9); Immature Granulocytes % 1.3 % (0-4); Lymphocytes # 0.5 K/mcL (0.6-4.6); Lymphocytes % 7.8 %; Mean Corpuscular HGB Conc 31.3 g/dL (31.6-35.5); Mean Corpuscular Hemoglobin 30.1 pg (28.0-33.3); Mean Corpuscular Volume 95.9 fL (83.0-100.0); Mean Platelet Volume 9.6 fL (9.4-12.4); Monocytes # 0.2 K/mcL (0.0-1.3); Monocytes % 3.8 %; Neutrophils # 5.6 K/mcL (1.6-8.9); Platelet Count 259 K/mcL (140-400); Red Blood Count 3.66 M/mcL (3.82-4.97); Red Cell Distribution Width 13.2 % (11.5-14.5); Segmented Neutrophils % 87.1 %; White Blood Count 6.4 K/mcL (4.3-11.1)
[2018-09-02] MEDS: Pantoprazole 40 MG VIAL IVP SCH (05:25)
[2018-09-02] MEDS: *HR* Heparin 5,000 UNIT/ML VIAL SQ SCH (05:25)
[2018-09-02] MEDS: Potassium Chloride 40 MEQ in D5% in 0.45% NACL 1,000 ML IVC SCH (05:26)
[2018-09-02 05:39] LABS: BUN/Creatinine Ratio 42 (6-26); Blood Urea Nitrogen 42 mg/dL (8-23); Calcium 8.7 mg/dL (8.6-10.3); Carbon Dioxide 20 mEq/L (23-29); Chloride 117 mEq/L (98-107); Glucose 167 mg/dL (70-105); Magnesium 2.4 mg/dL (1.6-2.6); Osmolality,Calculated 314 (280-300); Potassium 3.4 mEq/L (3.5-5.1); Sodium 145 mEq/L (136-145); eGFR For African Americans > 60 (> 60); eGFR For Non-African Americans 53 (> 60)
[2018-09-02] MEDS ORDERED: Potassium Chloride Elixir 20 MEQ/15 ML UDC PO SCH (07:45)
--- NOTE | 2018-09-02 09:33 | Event Note ---
Date of Encounter: 09/02/18 Time of Encounter: 09:[address] Markham's progress note, pt is ok for d.c. D/c plan updated with diet recommendations and d/c appointment. She should also be d/c'd on medrol dose pack. Pt sitting upright in bed this am. Denies nausea or difficulty swallowing liquids. Reviewed with attending hospitalist the need for patient to be able to swallow pills prior to discharge or if medications can be crushed or converted to liquid would be fine also. Do not recommend any large pills as these would have a high propensity of getting stuck. Please call if any further questions or needs arise.
[2018-09-02] MEDS ORDERED: Lisinopril-HCTZ 20-12.5mg TABLET PO ONE (09:46)
--- NOTE | 2018-09-02 10:11 | Discharge Summary ---
- NOTES TO OUTPATIENT PROVIDER Notes to Outpatient Provider: Follow up with cardiology and surgery as outpatient Date of Encounter: 09/02/18 Time of Encounter: 07:30 - Discharge Diagnosis (1) Odynophagia Priority: Primary Status: Acute (2) Aspiration pneumonia Priority: Secondary Status: Acute Qualifiers: Aspiration pneumonia type: unspecified Laterality: bilateral Lung location: lower lobe of lung Qualified Code(s): J69.0 - Pneumonitis due to inhalation of food and vomit (3) Acute kidney injury Priority: Secondary Status: Acute (4) Elevated troponin Priority: Secondary Status: Acute (5) DVT prophylaxis Priority: Secondary Status: Acute Hospital course: Ms. Ackerman is a 77 year old female with history of HTN, CAD, CKD, hypothyroidism, recent Everardo fundoplication and hernia repair, who was admitted due to odynophagia and inability to take by mouth. She was noted to have mild acute on chronic kidney failure and findings compatible with aspiration PNA. Also had mildly elevated troponin of 0.32 in the absence of anginal symptoms or EKG changes; echo also showed preserved EF. Managed in consultation with surgery who attributed to post-op edema. Was started on baclofen and IV solumedrol and she was able to tolerate CLD for 2 days prior to discharge. She will be discharged on Medrol dose brittnee and is to continue clear liquid for the next 3-4 days. Her pills were either changed to liquid form or crushable version. She will also complete PO Augmentin for a total of 7 day course for aspiration PNA. Of note, due to asymptomatic sinus bradycardia, bb is held and she will need to follow up with Cardiology as outpatient. Discharge discussed with: patient, family, nurse, benefits consultant - Time Spent with Patient Total time spent providing and/or coordinating discharge services: 32 mins - Discharge Medications Prescriptions: New Docusate [Colace] 100 mg PO BID PRN #200 mls PRN Reason: Constipation Potassium Chloride [K-Tab ER] 10 meq PO DAILY #15 tablet.er Baclofen [Lioresal] 10 mg PO TID PRN 10 Days #30 tablet PRN Reason: Spasms Omeprazole [PriLOSEC] 20 mg PO DAILY #30 cap Amoxicillin/Clavulanate [AUGMENTIN Susp] 11 ml PO BID 2 Days #75 mls methylPREDNISolone [Medrol] 4 mg PO DAILY 5 Days #21 tablet Continued Zolpidem [Ambien] 5 mg PO HS PRN PRN Reason: Sleep Levothyroxine [Synthroid] 100 mcg PO QAM Pravastatin Sodium [Pravachol] 80 mg PO QPM Cyanocobalamin (Vitamin B-12) [Vitamin B-12] 1,000 mcg SL DAILY Estradiol [Estrace] 1 appl VG 2XW PRN PRN Reason: Vaginal Dryness Hydrocortisone 2.5% CREAM [Cortaid] 1 appl TP TID PRN PRN Reason: Rash Lisinopril-HCTZ 20-12.5 [Prinzide 20-12.5] 1 tab PO QAM Ubidecarenone/Vit E Acetate [Co Q-10 100 mg Softgel] 100 mg PO QPM Vitamins A and D [Vitamin A and D] 1 cap PO DAILY Polyethylene Glycol 3350 [MiraLAX Powder Bulk 17.9 Oz] 1 scoop PO DAILY 30 Days #510 gm OxyCODONE Immed Rel [Roxicodone 5 MG] 5 mg PO Q4HR PRN 7 Days #28 tablet PRN Reason: Severe Pain Ondansetron ODT [Zofran ODT] 4 mg SL Q4HR PRN #30 tab.rapdis PRN Reason: Nausea Ranitidine HCl [Heartburn Relief] 150 mg PO DAILY PRN PRN Reason: Heartburn Discontinued Metoprolol XL (24 HR) Succ [Toprol Xl] 25 mg PO QAM Potassium 198 mg PO QAM Pantoprazole Sodium [Protonix] 40 mg PO QAM Docusate Sodium [Colace] 100 mg PO BID PRN #60 capsule PRN Reason: Contstipation Home Medications: Cyanocobalamin (Vitamin B-12) [Vitamin B-12] 1,000 mcg SL DAILY 08/22/15 [History] Levothyroxine [Synthroid] 100 mcg PO QAM 08/22/15 [History] Pravastatin Sodium [Pravachol] 80 mg PO QPM 08/22/15 [History] Zolpidem [Ambien] 5 mg PO HS PRN 08/22/15 [History] Estradiol [Estrace] 1 appl VG 2XW PRN 11/16/17 [History] Hydrocortisone 2.5% CREAM [Cortaid] 1 appl TP TID PRN 08/25/18 [History] Lisinopril-HCTZ 20-12.5 [Prinzide 20-12.5] 1 tab PO QAM 08/25/18 [History] Ubidecarenone/Vit E Acetate [Co Q-10 100 mg Softgel] 100 mg PO QPM 08/25/18 [History] Vitamins A and D [Vitamin A and D] 1 cap PO DAILY 08/25/18 [History] Ondansetron ODT [Zofran ODT] 4 mg SL Q4HR PRN #30 tab.rapdis 08/26/18 [Rx] OxyCODONE Immed Rel [Roxicodone 5 MG] 5 mg PO Q4HR PRN 7 Days #28 tablet 08/26/18 [Rx] Polyethylene Glycol 3350 [MiraLAX Powder Bulk 17.9 Oz] 1 scoop PO DAILY 30 Days #510 gm 08/26/18 [Rx] Ranitidine HCl [Heartburn Relief] 150 mg PO DAILY PRN 08/29/18 [History] Amoxicillin/Clavulanate [AUGMENTIN Susp] 11 ml PO BID 2 Days #75 mls 09/02/18 [Rx] Baclofen [Lioresal] 10 mg PO TID PRN 10 Days #30 tablet 09/02/18 [Rx] Docusate [Colace] 100 mg PO BID PRN #200 mls 09/02/18 [Rx] Omeprazole [PriLOSEC] 20 mg PO DAILY #30 cap 09/02/18 [Rx] Potassium Chloride [K-Tab ER] 10 meq PO DAILY #15 tablet.er 09/02/18 [Rx] methylPREDNISolone [Medrol] 4 mg PO DAILY 5 Days #21 tablet 09/02/18 [Rx] Allergies/Adverse Reactions: Allergy/AdvReac Type Severity Reaction Status Date / Time buprenorphine [From Butrans] Allergy Swelling Verified 08/29/18 14:03 of Lip/Tongue/Throat KELLY Inhibitors AdvReac Cough Verified 08/29/18 14:03 duloxetine [From Cymbalta] AdvReac Agitated Verified 08/29/18 14:03 gabapentin AdvReac See Verified 08/29/18 14:03 Comments hydrocodone AdvReac Vomiting Verified 08/29/18 14:03 NSAIDS (Non-Steroidal AdvReac See Verified 08/29/18 14:03 Anti-Inflamma Comments Tizanidine AdvReac Dizziness Verified 08/29/18 14:03 Date of admission: 08/29/18 16:17 Primary care physician: Maddi Pizano CNP Consults: 08/27/18 22:38 Consult to Surgery [CONS] Stat Consulting Provider: Acute Care Surgery Reason for Consult: 2d s/p Everardo. Pain with swallowing. Also CONSTANTIN and elev trop. Time Notified: 22:39 Call Completed: Yes 08/28/18 02:29 Consult to Nutrition [CONS] Routine Comment: Consulting Provider: NUTRITION Reason for Dietary Consult: MST Score - Constitutional Vitals: Temp Pulse Resp BP Pulse Ox 97.8 F 50 16 172/79 95 09/02/18 06:31 09/02/18 06:31 09/02/18 06:31 09/02/18 06:31 09/02/18 06:31 General appearance: Present: cooperative, mild distress, A&O X 3, pleasant, answers questions appropriately Exam: General: Patient is alert, no acute distress, oriented x 3 Respiratory: Normal breath sounds. No wheezing or crackles. Cardiovascular: bradycardic, regular rhythm. s1 and s2 normal No clicks, rubs, gallops, or murmurs. Abdomen: Abdomen is soft, minimal tenderness in the epigastric region. Bowel sounds are present Musculoskeletal: Spontaneously moving all extremities Skin: warm, dry, intact. Neuro: Alert oriented x 3 normal cranial nerves, no focal deficits - Patient Status Disposition: Home, Self-Care Condition: Fair Functional capacity at discharge: independent ambulation Overall status at discharge: patient is progressing back to baseline - Discharge Instructions Instructions: Pneumonia (DC), Hypothyroidism (DC) Follow Up With: Payam Markham DO [Partnered Physician] - 09/14/18 10:15 am Maddi Pizano CNP [Primary Care Provider] - (Web request. Office will call with date and time of appointment. Thank you) Angel Lopez MD [Non-Partnered Physician] - - Diet and Activity Activity: resume usual activities as tolerated Diet: other (clear liquid for the next 3-4 days then mashed potato consistency type diet)
[2018-09-02 11:29] VITALS: BP 176/83
[2018-09-02] MEDS ORDERED: hydrALAZINE 10 MG TABLET PO ONE (12:30)
[2018-09-02] MEDS ORDERED: cloNIDine HCl 0.1 MG TABLET PO ONE (15:18)
== END 2018-09-02 16:32 | disposition home or self-care (01) | DRG 393 ==
LOC: EMEROOARM 19:00 → 3ANU 19:00 → SUATTDRO 08-29 16:17
PROVIDERS: ADMIT Pediatrics; ATTEND Internal Medicine

== ENCOUNTER 2019-03-12 02:52 | Observation (INO) ==
[2019-03-12] MEDS ORDERED: Isovue-370 500 ML BOTTLE IVP ONE (03:00)
[2019-03-12 03:12] LABS: Basophils # 0.1 K/mcL (0.0-0.2); Basophils % 0.6 %; Eosinophils # 0.4 K/mcL (0.0-0.6); Eosinophils % 4.8 %; Hematocrit 36.9 % (35.3-44.9); Hemoglobin 12.3 g/dL (11.5-15.4); Immature Granulocytes % 0.3 % (0-4); Lymphocytes # 2.1 K/mcL (0.6-4.6); Lymphocytes % 23.9 %; Mean Corpuscular HGB Conc 33.3 g/dL (31.6-35.5); Mean Corpuscular Volume 92.9 fL (83.0-100.0); Mean Platelet Volume 9.3 fL (9.4-12.4); Monocytes # 0.6 K/mcL (0.0-1.3); Monocytes % 7.3 %; Neutrophils # 5.5 K/mcL (1.6-8.9); Platelet Count 282 K/mcL (140-400); Red Blood Count 3.97 M/mcL (3.82-4.97); Red Cell Distribution Width 13.8 % (11.5-14.5); Segmented Neutrophils % 63.1 %; White Blood Count 8.7 K/mcL (4.3-11.1)
[2019-03-12 03:34] LABS: BUN/Creatinine Ratio 24 (6-26); Blood Urea Nitrogen 24 mg/dL (8-23); Calcium 9.6 mg/dL (8.6-10.3); Carbon Dioxide 26 mEq/L (23-29); Chloride 108 mEq/L (98-107); Glucose 102 mg/dL (70-105); Osmolality,Calculated 296 (280-300); Potassium 3.4 mEq/L (3.5-5.1); Sodium 141 mEq/L (136-145); eGFR For African Americans > 60 (> 60); eGFR For Non-African Americans 54 (> 60)
[2019-03-12 03:35] LABS: Troponin I < 0.03 ng/mL (< 0.04)
[2019-03-12] MEDS ORDERED: Aspirin 325 MG TABLET PO ONE (05:05)
[2019-03-12] MEDS ORDERED: Naloxone 0.4 MG/ML INJ IVP PRN (06:30)
[2019-03-12] MEDS ORDERED: Ondansetron 4 MG/2 ML VIAL IVP PRN (06:41)
[2019-03-12 06:45] VITALS: BP 136/64
[2019-03-12] MEDS ORDERED: Regadenoson 0.4 MG/5 ML SYRINGE IVP ONE (11:22)
[2019-03-12] MEDS ORDERED: *HR* Heparin 5,000 UNIT/ML VIAL SQ SCH (18:00)
== END 2019-03-12 15:42 | disposition home or self-care (01) ==
LOC: 3BNU 02:52 → EMEROOARM 02:52 → SUATTDRO 05:36 → 3BNU 06:10
PROVIDERS: ADMIT Internal Medicine; ATTEND Internal Medicine

== ENCOUNTER 2021-01-23 19:15 | Inpatient (IN) ==
[2021-01-23] MEDS ORDERED: Isovue-370 500 ML BOTTLE IVP ONE (19:38)
[2021-01-23] MEDS ORDERED: Morphine Sulfate 2 MG/ML SYRINGE IVP ONE (19:38)
[2021-01-23 19:57] LABS: Basophils % 0.3 %; Eosinophils # 0.1 K/mcL (0.0-0.6); Eosinophils % 1.9 %; Hematocrit 37.5 % (35.3-44.9); Hemoglobin 12.2 g/dL (11.5-15.4); Immature Granulocytes % 0.4 % (0-4); Lymphocytes # 0.8 K/mcL (0.6-4.6); Lymphocytes % 10.8 %; Mean Corpuscular HGB Conc 32.5 g/dL (31.6-35.5); Mean Corpuscular Hemoglobin 30.9 pg (28.0-33.3); Mean Corpuscular Volume 94.9 fL (83.0-100.0); Mean Platelet Volume 8.7 fL (9.4-12.4); Monocytes # 0.6 K/mcL (0.0-1.3); Monocytes % 8.3 %; Neutrophils # 5.9 K/mcL (1.6-8.9); Platelet Count 370 K/mcL (140-400); Red Blood Count 3.95 M/mcL (3.82-4.97); Red Cell Distribution Width 12.7 % (11.5-14.5); Segmented Neutrophils % 78.3 %; White Blood Count 7.5 K/mcL (4.3-11.1)
[2021-01-23 20:21] LABS: Alanine Aminotransferase 74 Units/L (7-52); Albumin 3.3 g/dL (3.5-5.7); Albumin/Globulin Ratio 1.1 (1.1-2.2); Alkaline Phosphatase 258 Units/L (34-104); Aspartate Amino Transferase 53 Units/L (13-39); BUN/Creatinine Ratio 23 (6-26); Bilirubin,Total 1.4 mg/dL (0.3-1.0); Blood Urea Nitrogen 21 mg/dL (8-23); Calcium 9.2 mg/dL (8.6-10.3); Carbon Dioxide 31 mEq/L (23-29); Chloride 94 mEq/L (98-107); Glucose 122 mg/dL (70-105); Osmolality,Calculated 282 (280-300); Potassium 3.2 mEq/L (3.5-5.1); Sodium 134 mEq/L (136-145); Total Protein 6.3 g/dL (6.4-8.9); Troponin I < 0.03 ng/mL (< 0.04); eGFR For African Americans > 60 (> 60); eGFR For Non-African Americans 58 (> 60)
[2021-01-23] MEDS ORDERED: Furosemide 40 MG/4 ML VIAL IVP ONE (22:01)
[2021-01-23] MEDS ORDERED: Naloxone 0.4 MG/ML INJ IVP PRN (23:25)
[2021-01-23] MEDS ORDERED: *HR* HYDROcodone/Acet 5/325 mg TABLET PO PRN (23:25)
[2021-01-23] MEDS ORDERED: *HR* Promethazine 25 MG/ML VIAL IM PRN (23:25)
[2021-01-23] MEDS ORDERED: Ketorolac 30 MG/ML VIAL IVP PRN (23:45)
[2021-01-24] MEDS ORDERED: MetroNIDAZOLE 500 MG/100 ML 500 MG/100 ML BAG IVPB SCH (01:12)
[2021-01-24 01:13] LABS: Eosinophils # 0.1 K/mcL (0.0-0.6); Hematocrit 36.9 % (35.3-44.9); Hemoglobin 12.2 g/dL (11.5-15.4); Mean Corpuscular HGB Conc 33.1 g/dL (31.6-35.5); Mean Corpuscular Hemoglobin 31.4 pg (28.0-33.3); Mean Corpuscular Volume 95.1 fL (83.0-100.0); Mean Platelet Volume 8.7 fL (9.4-12.4); Platelet Count 319 K/mcL (140-400); Red Blood Count 3.88 M/mcL (3.82-4.97); Red Cell Distribution Width 12.8 % (11.5-14.5)
[2021-01-24 01:14] LABS: White Blood Count 12.5 K/mcL (4.3-11.1)
[2021-01-24 01:28] LABS: INR 1.3
[2021-01-24 01:34] LABS: BUN/Creatinine Ratio 23 (6-26); Blood Urea Nitrogen 21 mg/dL (8-23); Calcium 8.7 mg/dL (8.6-10.3); Carbon Dioxide 26 mEq/L (23-29); Chloride 98 mEq/L (98-107); Cholesterol 95 mg/dL (< 200); Glucose 111 mg/dL (70-105); HDL Cholesterol 32 mg/dL (40-59); LDL Cholesterol,Calculated 45 mg/dL (< 100); Osmolality,Calculated 282 (280-300); Phosphorous 3.5 mg/dL (2.7-4.5); Potassium 3.3 mEq/L (3.5-5.1); Sodium 134 mEq/L (136-145); Triglycerides 90 mg/dL (< 150); Troponin I < 0.03 ng/mL (< 0.04); eGFR For African Americans > 60 (> 60); eGFR For Non-African Americans 59 (> 60)
[2021-01-24 01:54] LABS: Lactate Dehydrogenase 243 Units/L (140-271); Total Protein 5.5 g/dL (6.4-8.9)
[2021-01-24 02:43] LABS: Basophils # 0.3 K/mcL (0.0-0.2); Lymphocytes # 0.4 K/mcL (0.6-4.6); Monocytes # 0.6 K/mcL (0.0-1.3); Neutrophils # 11.1 K/mcL (1.6-8.9); Platelet Estimate Normal (Normal); Reactive Lymphocytes Present (Not Present); Toxic Granulation Present (Not Present)
[2021-01-24] MEDS ORDERED: levoFLOXacin 750 MG/150 ML 750 MG/150 ML BAG IVPB SCH (03:00)
[2021-01-24] MEDS ORDERED: Perflutren Lipid Microsphere 1.3 ML in 0.9 % Sodium Chloride 8.7 ML IVP PRN (06:06)
[2021-01-24] MEDS ORDERED: *HR* Dextrose 50 % in Water (Syg) 50 ML SYRINGE IVP PRN (06:34)
[2021-01-24] MEDS ORDERED: D5% in Water 1,000 ML IVC PRN (06:34)
[2021-01-24] MEDS ORDERED: Dextrose Gel 15 GM/37.5 ML TUBE PO PRN ×2 (06:34)
[2021-01-24] MEDS ORDERED: Ketorolac 30 MG/ML VIAL IVP PRN (07:39)
[2021-01-24] MEDS: Pantoprazole 40 MG VIAL IVP SCH (10:02)
[2021-01-24] MEDS: Chlorhexidine Rinse 15 ML MOUTHWASH MM SCH ×2 (10:02→21:14)
[2021-01-24] MEDS: Multivit/Ca/Min/Fe/FA 1 TAB TABLET PO SCH (10:03)
[2021-01-24] MEDS: Ipratropium/Albuterol Neb 3 ML IH SCH ×3 (10:34→20:55)
[2021-01-24 10:50] LABS: Estimated Average Glucose 126 mg/dl
[2021-01-24 11:14] LABS: Alanine Aminotransferase 66 Units/L (7-52); Albumin 3.2 g/dL (3.5-5.7); Albumin/Globulin Ratio 1.3 (1.1-2.2); Alkaline Phosphatase 257 Units/L (34-104); Aspartate Amino Transferase 52 Units/L (13-39); Bilirubin,Direct 0.4 mg/dL (0.0-0.2); Bilirubin,Indirect 1.1 mg/dL (0.0-1.0); Bilirubin,Total 1.5 mg/dL (0.3-1.0); Globulin 2.4 g/dL (2.4-3.5); Lipase < 3 Units/L (11-82); Thyroid Stimulating Hormone 2.055 mcIU/mL (0.340-5.600); Total Protein 5.6 g/dL (6.4-8.9)
[2021-01-24 11:20] LABS: Adenovirus Not Detected (Not Detect); Bordetella Pertussis Not Detected (Not Detect); Chlamydophila pneumoniae Not Detected (Not Detect); Coronavirus 229E Not Detected (Not Detect); Coronavirus HKU1 Not Detected (Not Detect); Coronavirus NL63 Not Detected (Not Detect); Coronavirus OC43 Not Detected (Not Detect); Human Metapneumovirus Not Detected (Not Detect); Human Rhinovirus/Enterovirus Not Detected (Not Detect); Influenza A Subtype 2009 H1 Not Detected (Not Detect); Influenza B Not Detected (Not Detect); Mycoplasma pneumoniae Not Detected (Not Detect); Parainfluenza Virus 1 Not Detected (Not Detect); Parainfluenza Virus 2 Not Detected (Not Detect); Parainfluenza Virus 3 Not Detected (Not Detect); Parainfluenza Virus 4 Not Detected (Not Detect); Respiratory Syncytial Virus Not Detected (Not Detect); SARS-CoV-2 Not Detected (Not Detect)
[2021-01-24] MEDS: Piperacillin/Tazobactam 3.375 GM in 0.9 % Sodium Chloride Mini Bag 100 ML IVPB SCH ×2 (12:29→17:06)
[2021-01-24 15:09] LABS: Bilirubin,Urine Negative (Negative); Blood,Urine Negative (Negative); Clarity,Urine Clear (Clear); Color,Urine Yellow (Yellow); Glucose,Urine (UA) Normal (Normal); Ketones,Urine Negative (Negative); Leukocyte Esterase,Urine Negative (Negative); Nitrite,Urine Negative (Negative); Protein,Urine Trace mg/dL (Neg-Trace); Specific Gravity,Urine > 1.030 (1.010-1.025); Urobilinogen,Urine Normal (Normal)
[2021-01-24 16:51] LABS: Glucose,Pleural Fluid < 10 mg/dL (No Ref Range); LDH,Pleural Fluid > 1200 Units/L (No Ref Range); Total Protein,Pleural Fluid 3.6 g/dL
[2021-01-24 17:09] LABS: RBC,Pleural Fluid 56000 RBC/mcL
[2021-01-24] MEDS: 0.9 % Sodium Chloride w KCl 20 MEQ/1,000 ML MLS IVC SCH (18:52)
[2021-01-24] MEDS: Melatonin 3 MG TABLET PO PRN (21:14)
[2021-01-24] MEDS: Acetaminophen 325 MG TABLET PO PRN (21:17)
[2021-01-24 21:18] LABS: Appearance of Pleural Fl Cloudy (Clear)
[2021-01-24 21:22] LABS: Basophils,Pleural Fluid 0 %; Monocytes,Pleural Fluid 0 %
[2021-01-25] MEDS: Piperacillin/Tazobactam 3.375 GM in 0.9 % Sodium Chloride Mini Bag 100 ML IVPB SCH ×4 (00:03→23:35)
[2021-01-25] MEDS: Ipratropium/Albuterol Neb 3 ML IH SCH ×4 (03:44→20:46)
[2021-01-25] MEDS: 0.9 % Sodium Chloride w KCl 20 MEQ/1,000 ML MLS IVC SCH ×2 (04:49→16:50)
[2021-01-25] MEDS ORDERED: *HR* Enoxaparin 40 MG/0.4 ML SYRINGE SQ SCH (06:00)
[2021-01-25 06:02] LABS: Hematocrit 30.5 % (35.3-44.9); Hemoglobin 9.9 g/dL (11.5-15.4); Mean Corpuscular HGB Conc 32.5 g/dL (31.6-35.5); Mean Corpuscular Hemoglobin 31.4 pg (28.0-33.3); Mean Corpuscular Volume 96.8 fL (83.0-100.0); Mean Platelet Volume 8.7 fL (9.4-12.4); Platelet Count 286 K/mcL (140-400); Red Blood Count 3.15 M/mcL (3.82-4.97); Red Cell Distribution Width 13.2 % (11.5-14.5); White Blood Count 14.7 K/mcL (4.3-11.1)
[2021-01-25 06:29] LABS: Albumin 2.5 g/dL (3.5-5.7); Albumin/Globulin Ratio 1.3 (1.1-2.2); Bilirubin,Total 0.8 mg/dL (0.3-1.0); Calcium 7.8 mg/dL (8.6-10.3); Globulin 1.9 g/dL (2.4-3.5); Potassium 3.9 mEq/L (3.5-5.1); Total Protein 4.4 g/dL (6.4-8.9)
[2021-01-25] MEDS: Multivit/Ca/Min/Fe/FA 1 TAB TABLET PO SCH (07:50)
[2021-01-25] MEDS: Chlorhexidine Rinse 15 ML MOUTHWASH MM SCH ×2 (07:50→21:12)
[2021-01-25] MEDS: Pantoprazole 40 MG VIAL IVP SCH (07:51)
[2021-01-25] MEDS ORDERED: E-Z-HD (BARIUM SULF) SUSPENSION PO ONE (12:06)
[2021-01-25] MEDS ORDERED: E-Z-PAQUE (BARIUM SULF) SUSP 1 BOTTLE PO ONE (12:06)
[2021-01-25] MEDS: polyethylene glycoL 3350 17 GM POWD.PACK PO SCH (16:29)
[2021-01-25] MEDS: *HR* Heparin 5,000 UNIT/ML VIAL SQ SCH (17:27)
[2021-01-25] MEDS: (Ubidecarenone/Vit E Acetate [Co Q-10 100 Mg Softgel] PO SCH (17:28)
[2021-01-25] MEDS: Acetaminophen 325 MG TABLET PO PRN (21:12)
[2021-01-25] MEDS: Melatonin 3 MG TABLET PO PRN (21:14)
[2021-01-26] MEDS: Ipratropium/Albuterol Neb 3 ML IH SCH ×4 (03:28→20:22)
[2021-01-26 04:08] LABS: Hemoglobin 10.3 g/dL (11.5-15.4); Mean Corpuscular HGB Conc 32.2 g/dL (31.6-35.5); Mean Corpuscular Volume 96.4 fL (83.0-100.0); Mean Platelet Volume 8.9 fL (9.4-12.4); Platelet Count 372 K/mcL (140-400); Red Blood Count 3.32 M/mcL (3.82-4.97); Red Cell Distribution Width 13.5 % (11.5-14.5); White Blood Count 21.2 K/mcL (4.3-11.1)
[2021-01-26 04:32] LABS: Alanine Aminotransferase 46 Units/L (7-52); Albumin 2.6 g/dL (3.5-5.7); Albumin/Globulin Ratio 1.4 (1.1-2.2); Alkaline Phosphatase 182 Units/L (34-104); Aspartate Amino Transferase 57 Units/L (13-39); BUN/Creatinine Ratio 22 (6-26); Bilirubin,Total 0.8 mg/dL (0.3-1.0); Blood Urea Nitrogen 22 mg/dL (8-23); Carbon Dioxide 23 mEq/L (23-29); Chloride 107 mEq/L (98-107); Globulin 1.9 g/dL (2.4-3.5); Glucose 89 mg/dL (70-105); Osmolality,Calculated 289 (280-300); Potassium 4.3 mEq/L (3.5-5.1); Sodium 138 mEq/L (136-145); Total Protein 4.5 g/dL (6.4-8.9); eGFR For African Americans > 60 (> 60); eGFR For Non-African Americans 52 (> 60)
[2021-01-26] MEDS: *HR* Heparin 5,000 UNIT/ML VIAL SQ SCH ×2 (05:57→18:12)
[2021-01-26] MEDS: Cyanocobalamin (B-12) 1,000 MCG TABLET PO SCH (08:22)
[2021-01-26] MEDS: Chlorhexidine Rinse 15 ML MOUTHWASH MM SCH ×2 (08:22→21:16)
[2021-01-26] MEDS: Metoprolol XL (24 HR) Succ 25 MG TAB.ER.24H PO SCH (08:22)
[2021-01-26] MEDS: polyethylene glycoL 3350 17 GM POWD.PACK PO SCH (08:22)
[2021-01-26] MEDS: Multivit/Ca/Min/Fe/FA 1 TAB TABLET PO SCH (08:22)
[2021-01-26] MEDS: VITAMIN A 10000 UNIT PO SCH (08:26)
[2021-01-26] MEDS: Piperacillin/Tazobactam 3.375 GM in 0.9 % Sodium Chloride Mini Bag 100 ML IVPB SCH ×2 (08:30→15:57)
[2021-01-26] MEDS: (Ubidecarenone/Vit E Acetate [Co Q-10 100 Mg Softgel] PO SCH (18:10)
[2021-01-26 19:19] LABS: Fluid Source for Cholesterol PLEURAL FLUID
[2021-01-27] MEDS: Ondansetron ODT 4 MG TAB.RAPDIS SL PRN
[2021-01-27] MEDS: Piperacillin/Tazobactam 3.375 GM in 0.9 % Sodium Chloride Mini Bag 100 ML IVPB SCH ×4 (00:01→22:56)
[2021-01-27 01:35] LABS: Hematocrit 33.7 % (35.3-44.9); Hemoglobin 10.8 g/dL (11.5-15.4); Mean Corpuscular Hemoglobin 31.2 pg (28.0-33.3); Mean Corpuscular Volume 97.4 fL (83.0-100.0); Mean Platelet Volume 8.5 fL (9.4-12.4); Platelet Count 396 K/mcL (140-400); Red Blood Count 3.46 M/mcL (3.82-4.97); Red Cell Distribution Width 13.7 % (11.5-14.5); White Blood Count 25.3 K/mcL (4.3-11.1)
[2021-01-27 01:52] LABS: Alanine Aminotransferase 52 Units/L (7-52); Albumin 2.7 g/dL (3.5-5.7); Albumin/Globulin Ratio 1.2 (1.1-2.2); Alkaline Phosphatase 199 Units/L (34-104); Aspartate Amino Transferase 69 Units/L (13-39); BUN/Creatinine Ratio 25 (6-26); Bilirubin,Total 0.9 mg/dL (0.3-1.0); Blood Urea Nitrogen 23 mg/dL (8-23); Calcium 8.2 mg/dL (8.6-10.3); Carbon Dioxide 20 mEq/L (23-29); Chloride 108 mEq/L (98-107); Globulin 2.3 g/dL (2.4-3.5); Glucose 112 mg/dL (70-105); Osmolality,Calculated 290 (280-300); Potassium 3.6 mEq/L (3.5-5.1); Sodium 138 mEq/L (136-145); eGFR For African Americans > 60 (> 60); eGFR For Non-African Americans 58 (> 60)
[2021-01-27] MEDS: Ipratropium/Albuterol Neb 3 ML IH SCH ×4 (04:08→20:40)
[2021-01-27] MEDS: *HR* Heparin 5,000 UNIT/ML VIAL SQ SCH ×2 (06:00→17:34)
[2021-01-27] MEDS: Cyanocobalamin (B-12) 1,000 MCG TABLET PO SCH (08:12)
[2021-01-27] MEDS: Multivit/Ca/Min/Fe/FA 1 TAB TABLET PO SCH (08:12)
[2021-01-27] MEDS: Chlorhexidine Rinse 15 ML MOUTHWASH MM SCH ×2 (08:12→20:16)
[2021-01-27] MEDS: Metoprolol XL (24 HR) Succ 25 MG TAB.ER.24H PO SCH (08:12)
[2021-01-27] MEDS: VITAMIN A 10000 UNIT PO SCH (08:15)
[2021-01-27] MEDS: polyethylene glycoL 3350 17 GM POWD.PACK PO SCH (08:15)
[2021-01-27 10:20] LABS: Cholesterol,Body Fluid 65 mg/dL
[2021-01-27] MEDS ORDERED: D10% in Water 500 ML IVC PRN (16:10)
[2021-01-27] MEDS: (Ubidecarenone/Vit E Acetate [Co Q-10 100 Mg Softgel] PO SCH (16:54)
[2021-01-27] MEDS ORDERED: Clinimix E 5%-20% SOLUTION 2,000 ML, Parenteral Amino Acid 10% 0 ML with MVI, adult wi... IVC SCH (17:00)
[2021-01-27] MEDS: Megestrol Acetate 400 MG/10 ML UDC PO SCH (17:53)
[2021-01-28] MEDS: Melatonin 3 MG TABLET PO PRN (02:04)
[2021-01-28 02:27] LABS: Hematocrit 32.1 % (35.3-44.9); Hemoglobin 10.4 g/dL (11.5-15.4); Mean Corpuscular HGB Conc 32.4 g/dL (31.6-35.5); Mean Corpuscular Hemoglobin 30.4 pg (28.0-33.3); Mean Corpuscular Volume 93.9 fL (83.0-100.0); Mean Platelet Volume 8.2 fL (9.4-12.4); Platelet Count 465 K/mcL (140-400); Red Blood Count 3.42 M/mcL (3.82-4.97); Red Cell Distribution Width 13.8 % (11.5-14.5); White Blood Count 21.4 K/mcL (4.3-11.1)
[2021-01-28 02:47] LABS: Magnesium 2.2 mg/dL (1.6-2.6); Phosphorous 1.6 mg/dL (2.7-4.5)
[2021-01-28 02:51] LABS: Alanine Aminotransferase 47 Units/L (7-52); Albumin 2.7 g/dL (3.5-5.7); Albumin/Globulin Ratio 1.1 (1.1-2.2); Alkaline Phosphatase 190 Units/L (34-104); Aspartate Amino Transferase 56 Units/L (13-39); BUN/Creatinine Ratio 25 (6-26); Bilirubin,Total 0.8 mg/dL (0.3-1.0); Blood Urea Nitrogen 20 mg/dL (8-23); Calcium 8.5 mg/dL (8.6-10.3); Carbon Dioxide 22 mEq/L (23-29); Chloride 107 mEq/L (98-107); Globulin 2.4 g/dL (2.4-3.5); Glucose 111 mg/dL (70-105); Osmolality,Calculated 289 (280-300); Potassium 3.4 mEq/L (3.5-5.1); Sodium 138 mEq/L (136-145); Total Protein 5.1 g/dL (6.4-8.9); eGFR For African Americans > 60 (> 60); eGFR For Non-African Americans > 60 (> 60)
[2021-01-28] MEDS: Ipratropium/Albuterol Neb 3 ML IH SCH ×4 (04:07→20:40)
[2021-01-28] MEDS: *HR* Heparin 5,000 UNIT/ML VIAL SQ SCH ×2 (05:12→17:39)
[2021-01-28] MEDS: Multivit/Ca/Min/Fe/FA 1 TAB TABLET PO SCH (07:45)
[2021-01-28] MEDS: Chlorhexidine Rinse 15 ML MOUTHWASH MM SCH (07:45)
[2021-01-28] MEDS: Metoprolol XL (24 HR) Succ 25 MG TAB.ER.24H PO SCH (07:46)
[2021-01-28] MEDS: Cyanocobalamin (B-12) 1,000 MCG TABLET PO SCH (07:46)
[2021-01-28] MEDS: Piperacillin/Tazobactam 3.375 GM in 0.9 % Sodium Chloride Mini Bag 100 ML IVPB SCH ×2 (07:46→17:40)
[2021-01-28] MEDS: VITAMIN A 10000 UNIT PO SCH (07:47)
[2021-01-28] MEDS: polyethylene glycoL 3350 17 GM POWD.PACK PO SCH (07:47)
[2021-01-28] MEDS: Megestrol Acetate 400 MG/10 ML UDC PO SCH (09:02)
[2021-01-28] MEDS ORDERED: Acetaminophen 325 MG TABLET PO PRN (10:32)
[2021-01-29] MEDS: Piperacillin/Tazobactam 3.375 GM in 0.9 % Sodium Chloride Mini Bag 100 ML IVPB SCH ×3 (00:19→17:10)
[2021-01-29 02:40] LABS: Hematocrit 31.4 % (35.3-44.9); Hemoglobin 10.3 g/dL (11.5-15.4); Mean Corpuscular HGB Conc 32.8 g/dL (31.6-35.5); Mean Corpuscular Hemoglobin 30.6 pg (28.0-33.3); Mean Corpuscular Volume 93.2 fL (83.0-100.0); Mean Platelet Volume 8.4 fL (9.4-12.4); Platelet Count 491 K/mcL (140-400); Red Blood Count 3.37 M/mcL (3.82-4.97); Red Cell Distribution Width 13.8 % (11.5-14.5); White Blood Count 18.4 K/mcL (4.3-11.1)
[2021-01-29 02:56] LABS: Alanine Aminotransferase 50 Units/L (7-52); Albumin 2.6 g/dL (3.5-5.7); Albumin/Globulin Ratio 1.2 (1.1-2.2); Alkaline Phosphatase 184 Units/L (34-104); Aspartate Amino Transferase 66 Units/L (13-39); BUN/Creatinine Ratio 26 (6-26); Bilirubin,Total 0.7 mg/dL (0.3-1.0); Blood Urea Nitrogen 20 mg/dL (8-23); Calcium 8.4 mg/dL (8.6-10.3); Carbon Dioxide 24 mEq/L (23-29); Chloride 106 mEq/L (98-107); Globulin 2.1 g/dL (2.4-3.5); Glucose 82 mg/dL (70-105); Osmolality,Calculated 290 (280-300); Potassium 3.2 mEq/L (3.5-5.1); Sodium 139 mEq/L (136-145); Total Protein 4.7 g/dL (6.4-8.9); eGFR For African Americans > 60 (> 60); eGFR For Non-African Americans > 60 (> 60)
[2021-01-29] MEDS: Ipratropium/Albuterol Neb 3 ML IH SCH ×4 (04:05→21:24)
[2021-01-29] MEDS: *HR* Heparin 5,000 UNIT/ML VIAL SQ SCH ×2 (05:31→17:09)
[2021-01-29] MEDS: Cyanocobalamin (B-12) 1,000 MCG TABLET PO SCH (08:24)
[2021-01-29] MEDS: Multivit/Ca/Min/Fe/FA 1 TAB TABLET PO SCH (08:24)
[2021-01-29] MEDS: Metoprolol XL (24 HR) Succ 25 MG TAB.ER.24H PO SCH (08:24)
[2021-01-29] MEDS: polyethylene glycoL 3350 17 GM POWD.PACK PO SCH (08:26)
[2021-01-29] MEDS: Ondansetron ODT 4 MG TAB.RAPDIS SL PRN ×2 (08:35→17:28)
[2021-01-29] MEDS: Megestrol Acetate 400 MG/10 ML UDC PO SCH (09:25)
[2021-01-29] MEDS ORDERED: Vancomycin 1,250 MG/262.5 ML IV.SOLN IVPB SCH (19:00)
[2021-01-29] MEDS: Melatonin 3 MG TABLET PO PRN (22:52)
[2021-01-30] MEDS: Ipratropium/Albuterol Neb 3 ML IH SCH ×4 (04:08→20:25)
[2021-01-30] MEDS: *HR* Heparin 5,000 UNIT/ML VIAL SQ SCH ×2 (07:02→19:25)
[2021-01-30] MEDS: Piperacillin/Tazobactam 3.375 GM in 0.9 % Sodium Chloride Mini Bag 100 ML IVPB SCH ×4 (09:56→23:22)
[2021-01-30] MEDS: polyethylene glycoL 3350 17 GM POWD.PACK PO SCH (10:26)
[2021-01-30] MEDS: Multivit/Ca/Min/Fe/FA 1 TAB TABLET PO SCH (10:26)
[2021-01-30] MEDS: Metoprolol XL (24 HR) Succ 25 MG TAB.ER.24H PO SCH (10:26)
[2021-01-30] MEDS: Cyanocobalamin (B-12) 1,000 MCG TABLET PO SCH (10:26)
[2021-01-30] MEDS ORDERED: Bisacodyl 10 MG RECTAL SUPPOSITORY RC PRN (11:18)
[2021-01-30] MEDS: Megestrol Acetate 400 MG/10 ML UDC PO SCH (12:24)
[2021-01-30] MEDS ORDERED: 0.9 % Sodium Chloride 1,000 ML IVC SCH (14:45)
[2021-01-30] MEDS ORDERED: Acetaminophen IV 500 MG/50 ML BAG IVPB ONE (20:08)
[2021-01-30 20:17] VITALS: O2SAT 93
[2021-01-30] MEDS ORDERED: Micafungin 100 MG in 0.9 % Sodium Chloride Mini Bag 100 ML IVPB SCH (21:00)
[2021-01-31 00:18] VITALS: BP 163/72; PULSE 64; TEMP 98.6
== END 2021-01-31 03:14 | disposition short-term general hospital (02) | DRG 871 ==
LOC: 3ANU 19:15 → EMEROOARM 19:15 → SUATTDRO 22:38 → 3ANU 23:54 → SUATTDRO 01-24 18:16
PROVIDERS: ADMIT Family Medicine; ATTEND General Practice

== ENCOUNTER 2021-04-19 12:25 | Observation (INO) ==
[2021-04-19] MEDS ORDERED: Aspirin 325 MG TABLET PO ONE (13:26)
[2021-04-19 13:33] LABS: Basophils % 0.5 %; Eosinophils % 0.5 %; Hematocrit 37.8 % (35.3-44.9); Hemoglobin 11.7 g/dL (11.5-15.4); Immature Granulocytes % 0.2 % (0-4); Lymphocytes # 1.5 K/mcL (0.6-4.6); Lymphocytes % 17.1 %; Mean Corpuscular Hemoglobin 30.6 pg (28.0-33.3); Mean Platelet Volume 9.2 fL (9.4-12.4); Monocytes # 1.1 K/mcL (0.0-1.3); Monocytes % 13.4 %; Neutrophils # 5.8 K/mcL (1.6-8.9); Platelet Count 259 K/mcL (140-400); Red Blood Count 3.82 M/mcL (3.82-4.97); Red Cell Distribution Width 14.6 % (11.5-14.5); Segmented Neutrophils % 68.3 %; White Blood Count 8.5 K/mcL (4.3-11.1)
[2021-04-19 13:41] LABS: INR 1.2; Prothrombin Time 12.9 Seconds (9.4-12.1)
[2021-04-19 13:44] LABS: Activated Partial Thrombo Time 30.6 Seconds (26.0-36.0)
[2021-04-19 14:02] LABS: Alanine Aminotransferase 19 Units/L (7-52); Albumin 3.7 g/dL (3.5-5.7); Albumin/Globulin Ratio 1.5 (1.1-2.2); Alkaline Phosphatase 64 Units/L (34-104); Aspartate Amino Transferase 22 Units/L (13-39); BUN/Creatinine Ratio 26 (6-26); Bilirubin,Direct 0.3 mg/dL (0.0-0.2); Bilirubin,Indirect 1.1 mg/dL (0.0-1.0); Bilirubin,Total 1.4 mg/dL (0.3-1.0); Blood Urea Nitrogen 18 mg/dL (8-23); Calcium 10.1 mg/dL (8.6-10.3); Carbon Dioxide 27 mEq/L (23-29); Chloride 106 mEq/L (98-107); Globulin 2.4 g/dL (2.4-3.5); Glucose 111 mg/dL (70-105); Lipase 12 Units/L (11-82); Osmolality,Calculated 293 (280-300); Potassium 3.6 mEq/L (3.5-5.1); Sodium 140 mEq/L (136-145); Total Protein 6.1 g/dL (6.4-8.9); Troponin I < 0.03 ng/mL (< 0.04); eGFR For African Americans > 60 (> 60); eGFR For Non-African Americans > 60 (> 60)
[2021-04-19] MEDS ORDERED: Ketorolac 30 MG/ML VIAL IVP ONE (14:15)
[2021-04-19] MEDS: Nitroglycerin 0.4 MG TAB.SUBL SL PRN ×3 (15:36→15:55)
[2021-04-19] MEDS ORDERED: Ondansetron 4 MG/2 ML VIAL IVP PRN (16:22)
[2021-04-19] MEDS ORDERED: Perflutren Lipid Microsphere 1.3 ML in 0.9 % Sodium Chloride 8.7 ML IVP PRN (16:22)
[2021-04-19] MEDS ORDERED: Morphine Sulfate 2 MG/ML SYRINGE IVP PRN (16:22)
[2021-04-19] MEDS ORDERED: Naloxone 0.4 MG/ML INJ IVP PRN (16:22)
[2021-04-19] MEDS: (Potassium 99 MG Tablet) PO SCH (17:34)
[2021-04-20 01:33] LABS: Basophils % 0.5 %; Eosinophils # 0.1 K/mcL (0.0-0.6); Eosinophils % 1.9 %; Hematocrit 31.3 % (35.3-44.9); Hemoglobin 10.2 g/dL (11.5-15.4); Immature Granulocytes % 0.1 % (0-4); Lymphocytes # 2.2 K/mcL (0.6-4.6); Lymphocytes % 29.1 %; Mean Corpuscular HGB Conc 32.6 g/dL (31.6-35.5); Mean Corpuscular Hemoglobin 31.7 pg (28.0-33.3); Mean Corpuscular Volume 97.2 fL (83.0-100.0); Mean Platelet Volume 9.7 fL (9.4-12.4); Monocytes # 1.1 K/mcL (0.0-1.3); Monocytes % 14.8 %; Platelet Count 236 K/mcL (140-400); Red Blood Count 3.22 M/mcL (3.82-4.97); Red Cell Distribution Width 14.4 % (11.5-14.5); Segmented Neutrophils % 53.6 %; White Blood Count 7.4 K/mcL (4.3-11.1)
[2021-04-20 01:42] LABS: INR 1.3
[2021-04-20 01:54] LABS: Alanine Aminotransferase 15 Units/L (7-52); Albumin 3.1 g/dL (3.5-5.7); Albumin/Globulin Ratio 1.5 (1.1-2.2); Alkaline Phosphatase 56 Units/L (34-104); Aspartate Amino Transferase 17 Units/L (13-39); BUN/Creatinine Ratio 27 (6-26); Bilirubin,Total 1.1 mg/dL (0.3-1.0); Blood Urea Nitrogen 21 mg/dL (8-23); Calcium 9.7 mg/dL (8.6-10.3); Carbon Dioxide 28 mEq/L (23-29); Chloride 106 mEq/L (98-107); Chol/HDL Ratio 2.1 (0-4.9); Cholesterol 113 mg/dL (< 200); Globulin 2.1 g/dL (2.4-3.5); Glucose 94 mg/dL (70-105); HDL Cholesterol 55 mg/dL (40-59); LDL Cholesterol,Calculated 47 mg/dL (< 100); Magnesium 1.6 mg/dL (1.6-2.6); Osmolality,Calculated 293 (280-300); Potassium 3.6 mEq/L (3.5-5.1); Sodium 140 mEq/L (136-145); Total Protein 5.2 g/dL (6.4-8.9); Triglycerides 53 mg/dL (< 150); eGFR For African Americans > 60 (> 60); eGFR For Non-African Americans > 60 (> 60)
[2021-04-20 02:58] LABS: Estimated Average Glucose 100 mg/dl; Hemoglobin A1C 5.1 %
[2021-04-20] MEDS: *HR* Enoxaparin 40 MG/0.4 ML SYRINGE SQ SCH (06:28)
[2021-04-20] MEDS: Morphine Sulfate 2 MG/ML SYRINGE IVP PRN ×2 (10:21→13:00)
[2021-04-20] MEDS: 0.9 % Sodium Chloride 1,000 ML IVC SCH (10:24)
[2021-04-20] MEDS ORDERED: Isovue-370 500 ML BOTTLE IVP ONE (11:34)
[2021-04-20] MEDS: Aspirin 81 MG TAB.CHEW PO SCH (11:56)
[2021-04-20] MEDS: Cholecalciferol (D-3) 1,000 UNIT (25MCG) TABLET PO SCH (11:56)
[2021-04-20] MEDS: Metoprolol XL (24 HR) Succ 25 MG TAB.ER.24H PO SCH (11:56)
[2021-04-20] MEDS: Lisinopril-HCTZ 20-12.5mg TABLET PO SCH (11:56)
[2021-04-20] MEDS: (Potassium 99 MG Tablet) PO SCH (15:28)
[2021-04-20] MEDS ORDERED: 0.9 % Sodium Chloride 1,000 ML IV ONE (23:56)
[2021-04-21 04:11] LABS: Hematocrit 31.7 % (35.3-44.9); Hemoglobin 9.9 g/dL (11.5-15.4); Mean Corpuscular HGB Conc 31.2 g/dL (31.6-35.5); Mean Corpuscular Hemoglobin 30.7 pg (28.0-33.3); Mean Corpuscular Volume 98.1 fL (83.0-100.0); Mean Platelet Volume 9.6 fL (9.4-12.4); Platelet Count 243 K/mcL (140-400); Red Blood Count 3.23 M/mcL (3.82-4.97); Red Cell Distribution Width 14.3 % (11.5-14.5)
[2021-04-21 04:29] LABS: BUN/Creatinine Ratio 22 (6-26); Blood Urea Nitrogen 15 mg/dL (8-23); Calcium 8.6 mg/dL (8.6-10.3); Carbon Dioxide 25 mEq/L (23-29); Chloride 106 mEq/L (98-107); Glucose 89 mg/dL (70-105); Osmolality,Calculated 282 (280-300); Potassium 3.6 mEq/L (3.5-5.1); Sodium 136 mEq/L (136-145); eGFR For African Americans > 60 (> 60); eGFR For Non-African Americans > 60 (> 60)
[2021-04-21] MEDS: *HR* Enoxaparin 40 MG/0.4 ML SYRINGE SQ SCH (05:31)
[2021-04-21] MEDS: Aspirin 81 MG TAB.CHEW PO SCH (08:17)
[2021-04-21] MEDS: Metoprolol XL (24 HR) Succ 25 MG TAB.ER.24H PO SCH (08:17)
[2021-04-21] MEDS: Cholecalciferol (D-3) 1,000 UNIT (25MCG) TABLET PO SCH (08:17)
[2021-04-21] MEDS: Lisinopril-HCTZ 20-12.5mg TABLET PO SCH (08:17)
[2021-04-21 10:12] VITALS: BP 107/57; PULSE 67; TEMP 98.4; O2SAT 94
[2021-04-21] MEDS: 0.9 % Sodium Chloride 1,000 ML IVC SCH (10:13)
== END 2021-04-21 10:59 | disposition home or self-care (01) ==
LOC: 3BNU 12:25 → EMEROOARM 12:25 → SUATTDRO 16:23 → 3BNU 16:51
PROVIDERS: ADMIT Hospitalist; ATTEND Registered Nurse